=== PATIENT | female | born 1940 | race Caucasian/White ===

== ENCOUNTER 2017-06-08 05:30 | Inpatient (IN) | payer MEDICARE, OTHER ==
[2017-06-08] MEDS ORDERED: Sodium Chloride 0.9% 5 ML Syringe FLUSH PRN ×2 (05:38→07:02)
[2017-06-08] MEDS ORDERED: GI Cocktail 45 ML BOTTLE PO ONE (05:39)
[2017-06-08] MEDS ORDERED: GI Cocktail 45 ML BOTTLE ONE (05:40)
--- NOTE | 2017-06-08 06:18 | EDM.PDOC ---
ED HPI GENERAL MEDICAL PROBLEM - General Chief Complaint: General Stated Complaint: epigastric pain Time Seen by Provider: 06/08/17 05:40 Source of Information: Reports: Patient, Family History Limitations: Reports: No Limitations - History of Present Illness INITIAL COMMENTS - FREE TEXT/NARRATIVE: 77 YO WF presents to ER with family complaining of epigastric pain which began after waking 2 hours ago. Pt reports it's a constant pain and states it just "hurts". Pt reports associated nausea without vomiting. Pt denies shortness of breath, diaphoresis, or dizziness. Pt with recent history (December 2016) of CABG x 3. Pt with history of ?CVA or possible cerebral hemorrhage secondary to head injury. Pt refusing any medication for pain or nausea at this time. Onset: Today Onset Date: 06/08/17 Onset Time: 04:00 Duration: Hour(s): (2) Location: Reports: Chest, Abdomen Quality: Reports: Ache Severity: Mild Improves with: Reports: None Worsens with: Reports: None Associated Symptoms: Reports: No Other Symptoms, Nausea/Vomiting - Related Data Allergies Allergy/AdvReac Type Severity Reaction Status Date / Time No Known Drug Allergies Allergy NKDA Verified 06/08/17 06:09 Home Meds: Home Meds Multivitamin with Minerals [Multiple Vitamin] 1 tab PO DAILY 06/21/16 [History] Naproxen Sodium [Aleve] 220 mg PO BID PRN 06/21/16 [History] Aspirin [Halfprin] 81 mg PO BRK 06/08/17 [History] Hydrochlorothiazide/Lisinopril [Lisinopril/HCTZ 10-12.5 MG] 1 tab PO DAILY 06/08 [History] Nateglinide [Nateglinide] 60 mg PO BID 06/08/17 [History] Past Medical History HEENT History: Reports: Cataract, Hard of Hearing Cardiovascular History: Reports: High Cholesterol Gastrointestinal History: Reports: None Genitourinary History: Reports: None [employer] History: Reports: Musculoskeletal History: Reports: None Neurological History: Reports: TIA Endocrine/Metabolic History: Reports: Diabetes, Type II - Infectious Disease History Infectious Disease History: Reports: Measles, Mumps - Past Surgical History Female Surgical History: Reports: Hysterectomy, Other (See Below) Musculoskeletal Surgical History: Reports: Hip Replacement, Knee Replacement Social & Family History - Family History Family Medical History: Noncontributory - Tobacco Use Smoking Status *Q: Never Smoker Second Hand Smoke Exposure: No - Recreational Drug Use Recreational Drug Use: No ED ROS GENERAL - Review of Systems Review Of Systems: See Below Constitutional: Reports: No Symptoms HEENT: Reports: No Symptoms Respiratory: Reports: No Symptoms Cardiovascular: Reports: No Symptoms Endocrine: Reports: No Symptoms GI/Abdominal: Reports: Abdominal Pain, Nausea : Reports: No Symptoms Musculoskeletal: Reports: No Symptoms Skin: Reports: No Symptoms Neurological: Reports: No Symptoms Psychiatric: Reports: No Symptoms Hematologic/Lymphatic: Reports: No Symptoms Immunologic: Reports: No Symptoms ED EXAM, GENERAL - Physical Exam Exam: See Below Exam Limited By: No Limitations General Appearance: Alert, WD/WN, No Apparent Distress Throat/Mouth: Normal Inspection, Normal Lips, Normal Teeth, Normal Gums, Normal Oropharynx, Normal Voice, No Airway Compromise Head: Atraumatic, Normocephalic Neck: Normal Inspection, Supple, Non-Tender, Full Range of Motion Respiratory/Chest: No Respiratory Distress, Lungs Clear, Normal Breath Sounds, No Accessory Muscle Use, Chest Non-Tender Cardiovascular: Normal Peripheral Pulses, Regular Rate, Rhythm, No Edema, No Gallop, No JVD, No Murmur, No Rub GI/Abdominal: Normal Bowel Sounds, Soft, No Organomegaly, No Distention, No Abnormal Bruit, No Mass, Tender (epigastric) Back Exam: Normal Inspection, Full Range of Motion, NT Extremities: Normal Inspection, Normal Range of Motion, Non-Tender, Normal Capillary Refill, No Pedal Edema Neurological: Alert, Oriented, CN II-XII Intact, Normal Cognition, Normal Gait, Normal Reflexes, No Motor/Sensory Deficits Psychiatric: Normal Affect, Normal Mood Skin Exam: Warm, Dry, Intact, Normal Color, No Rash Lymphatic: No Adenopathy EKG INTERPRETATION EKG Date: 06/08/17 Time: 06:00 Rhythm: NSR Rate (Beats/Min): 67 Adin: Normal P-Wave: Present QRS: Normal ST-T: Normal QT: Normal Comparison: NA - No Prior EKG Course - Vital Signs Last Recorded V/S: Last Vital Signs Temp 35.7 C 06/08/17 05:30 Pulse 52 L 06/08/17 06:34 Resp 18 06/08/17 06:34 BP 188/50 H 06/08/17 06:34 Pulse Ox 97 08/10/17 06:34 - Orders/Labs/Meds Orders: Active Orders 24 hr Category Date Time Status EKG Documentation Completion [RC] ASDIRECTED Care 06/08/17 05:39 Active Chest 1V Frontal [CR] Stat Exams 06/08/17 05:38 Taken Sodium Chloride 0.9% [Syrex Flush] Med 06/08/17 05:38 Active 5 ml FLUSH Q8HR PRN Saline Lock Insert [OM.PC] Routine Oth 06/08/17 05:38 Ordered EKG 12 Lead [EK] Routine Ther 06/08/17 05:39 Ordered Medication Orders Sodium Chloride (Syrex Flush) 5 ml FLUSH Q8HR PRN PRN Reason: Keep Vein Open Labs: Laboratory Tests 06/08/17 06/08/17 Range/Units 05:50 05:50 WBC 8.7 (5.0-10.0) 10^3/uL RBC 4.77 (3.80-5.50) 10^6/uL Hgb 14.7 (12.0-16.0) g/dL Hct 44.2 (37.0-47.0) % MCV 92.7 H (82.0-92.0) fL MCH 30.7 (27.0-31.0) pg MCHC 33.2 (32.0-36.0) g/dL RDW 13.0 (11.5-14.5) % Plt Count 169 (150-300) 10^3/uL MPV 9.7 (7.4-10.4) fL Sodium 142 (136-145) mmol/L Potassium 4.1 (3.3-5.3) mmol/L Chloride 106 (98-115) mmol/L Carbon Dioxide 26.9 (21.0-32.0) mmol/L BUN 25 (6-25) mg/dL Creatinine 0.80 (0.51-1.17) mg/dL Est Cr Clr Drug Dosing 51.31 mL/min Estimated GFR (MDRD) > 60 mL/min Glucose 163 H (70-110) mg/dL Calcium 9.1 (8.7-10.3) mg/dL Creatine Kinase 61 (26-276) U/L CK-MB (CK-2) 2.60 (0.00-4.30) ng/mL Troponin I < 0.04 (0.00-0.070) ng/mL Lipase 24789 H (73-393) U/L Meds: Medications Generic Name Dose Route Start Last Admin Trade Name Freq PRN Reason Stop Dose Admin Sodium Chloride 5 ml 06/08/17 05:38 Syrex Flush FLUSH Q8HR PRN Keep Vein Open Discontinued Medications Generic Name Dose Route Start Last Admin Trade Name Freq PRN Reason Stop Dose Admin Al Hydroxide/Mg Hydroxide 45 ml 06/08/17 05:39 06/08/17 06:25 Gi Cocktail PO 06/08/17 05:40 Not Given ONETIME ONE Al Hydroxide/Mg Hydroxide Confirm 06/08/17 05:40 06/08/17 06:25 Gi Cocktail Administered 06/08/17 05:41 Not Given Dose 50 ml .ROUTE .STK-MED ONE Aspirin 324 mg 06/08/17 06:21 06/08/17 06:24 Aspirin PO 06/08/17 06:22 324 mg ONETIME ONE Administration Aspirin Confirm 06/08/17 06:22 Aspirin Administered 06/08/17 06:23 Dose 324 mg .ROUTE .STK-MED ONE Nitroglycerin 1 gm 06/08/17 06:21 06/08/17 06:30 Nitro-Bid 2% TOP 06/08/17 06:22 1 gm ONETIME ONE Administration - Radiology Interpretation Free Text/Narrative:: CXR- NAD Departure - Departure Time of Disposition: 06:46 Disposition: Admitted As Inpatient 64 Condition: Good Clinical Impression: Pancreatitis Qualifiers: Chronicity: acute - Discharge Information Referrals: Jennie Lakhani MD [Primary Care Provider] - Forms: ED Department Discharge - My Orders Last 24 Hours: My Active Orders 06/08/17 05:38 Chest 1V Frontal [CR] Stat Sodium Chloride 0.9% [Syrex Flush] 5 ml FLUSH Q8HR PRN Saline Lock Insert [OM.PC] Routine 06/08/17 05:39 EKG Documentation Completion [RC] ASDIRECTED EKG 12 Lead [EK] Routine - Assessment/Plan Last 24 Hours: My Active Orders 06/08/17 05:38 Chest 1V Frontal [CR] Stat Sodium Chloride 0.9% [Syrex Flush] 5 ml FLUSH Q8HR PRN Saline Lock Insert [OM.PC] Routine 06/08/17 05:39 EKG Documentation Completion [RC] ASDIRECTED EKG 12 Lead [EK] Routine Assessment:: 1. acute pancreatitis Plan: 1. admit to medicine- Magan Cote 2. pain medication/antiemetics 3. IVF 4. supportive care 5. repeat labs in am 6. CT abd/pelvis IV
[2017-06-08] MEDS ORDERED: Nitroglycerin 2% Oint 1 GM UD Packet TOP ONE (06:21)
[2017-06-08] MEDS ORDERED: Aspirin 81 MG Tab.Chew PO ONE (06:21)
[2017-06-08] MEDS ORDERED: Aspirin 81 MG Tab.Chew ONE (06:22)
[2017-06-08 06:38] LABS: CHLORIDE,CL 106 mmol/L (98-115); SODIUM,NA 142 mmol/L (136-145)
[2017-06-08] MEDS ORDERED: Morphine 2 MG/ML Syringe IVPUSH PRN (07:02)
[2017-06-08] MEDS ORDERED: Ondansetron 4 MG/2 ML SDV IV PRN (07:02)
[2017-06-08] MEDS: Sodium Chloride 0.9% 1,000 ML IV SCH ×3 (07:10→21:55)
[2017-06-08] MEDS ORDERED: Iopamidol 612 MG/ML 75 ML Bottle IV ONE (07:11)
[2017-06-08] MEDS ORDERED: Sodium Chloride 0.9% 50 ML SDV FLUSH SCH (07:15)
[2017-06-08] MEDS ORDERED: Atropine 0.1 MG/ML 10 ML Syringe IVPUSH PRN (09:40)
[2017-06-08] MEDS ORDERED: EPINEPHrine 1:10,000 1 MG/10 ML Syringe IVPUSH PRN (09:40)
[2017-06-08] MEDS ORDERED: Lidocaine 2% 100 MG/5 ML Syringe IVPUSH PRN (09:40)
[2017-06-08] MEDS ORDERED: Nitroglycerin 0.4 MG Tab.SL SL PRN (09:40)
--- NOTE | 2017-06-08 11:20 | PCM.HP ---
H&P History of Present Illness - General Date of Service: 06/08/17 Admit Problem/Dx: Admission Diagnosis/Problem Admission Diagnosis/Problem Pancreatitis - Related Data Allergies/Adverse Reactions: Allergies Allergy/AdvReac Type Severity Reaction Status Date / Time No Known Drug Allergies Allergy NKDA Verified 06/08/17 06:09 Home Medications: Home Meds Multivitamin with Minerals [Multiple Vitamin] 1 tab PO BEDTIME 06/21/16 [History ] Naproxen Sodium [Aleve] 220 mg PO BID PRN 06/21/16 [History] Acetaminophen 325 mg PO Q4H PRN 06/08/17 [History] Aspirin [Ecotrin] 325 mg PO DAILY 06/08/17 [History] Hydrochlorothiazide/Lisinopril [Lisinopril/HCTZ 10-12.5 MG] 1 tab PO DAILY 06/08 [History] Nateglinide [Nateglinide] 60 mg PO BIDAC 06/08/17 [History] Zolpidem Tartrate [Ambien] 5 mg PO BEDTIME PRN 06/08/17 [History] atorvaSTATin [Lipitor] 20 mg PO DAILY 06/08/17 [History] Past Medical History HEENT History: Reports: Cataract, Hard of Hearing Other HEENT History: has hearing aids Cardiovascular History: Reports: High Cholesterol Gastrointestinal History: Reports: None Other Gastrointestinal History: occ has gastric reflux Genitourinary History: Reports: None [employer]ING [employer] History: Reports: Musculoskeletal History: Reports: None Other Musculoskeletal History: walker use. 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 Endocrine/Metabolic History: Reports: Diabetes, Type II Other Dermatologic History: discoloration to L lower leg "had rash years ago" - Infectious Disease History Infectious Disease History: Reports: Measles, Mumps - Past Surgical History Female Surgical History: Reports: Hysterectomy, Other (See Below) Musculoskeletal Surgical History: Reports: Hip Replacement, Knee Replacement Social & Family History - Family History Family Medical History: Noncontributory - Tobacco Use Smoking Status *Q: Never Smoker Second Hand Smoke Exposure: No - Caffeine Use Caffeine Use: Reports: Soda - Recreational Drug Use Recreational Drug Use: No H&P Review of Systems - Review of Systems: Review Of Systems: See Below General: Denies: Fever, Chills, Decreased Appetite HEENT: Reports: No Symptoms Pulmonary: Reports: No Symptoms Cardiovascular: Denies: Palpitations, Edema Gastrointestinal: Reports: Abdominal Pain (umbilical pain), Anorexia, Nausea. Denies: Constipation, Diarrhea, Decreased Appetite, Distension Exam - Exam Exam: See Below - Vital Signs Vital Signs: Last Vital Signs Temp 97.6 F 06/08/17 10:36 Pulse 72 06/08/17 10:36 Resp 14 06/08/17 10:36 BP 155/80 H 06/08/17 10:36 Pulse Ox 97 06/08/17 10:36 Weight: 152 lb 3.2 oz - Patient Data Result Diagrams: 06/08/17 05:50 06/08/17 05:50 *Q Meaningful Use (ADM) - VTE *Q VTE Criteria *Q: - Stroke *Q Stroke Criteria *Q: - AMI *Q AMI Criteria *Q: Problem List Initiated/Reviewed/Updated: Yes Orders Last 24hrs: Active Orders 24 hr Category Date Time Status Patient Status [ADT] Routine ADT 06/08/17 07:02 Ordered Bedrest Bathroom Privileges [RC] ASDIRECTED Care 06/08/17 07:02 Active Bedrest Bedside Commode [RC] ASDIRECTED Care 06/08/17 07:02 Active Cardiac Monitoring [RC] 0300,0700,1100,1500,1900,2300 Care 06/08/17 07:03 Active Oxygen Therapy [RC] .PRN Care 06/08/17 07:02 Active VTE/DVT Education [RC] PER UNIT ROUTINE Care 06/08/17 07:02 Active Vital Signs [RC] 0300,0700,1100,1500,1900,2300 Care 06/08/17 07:02 Active Nothing per Oral Now Diet [DIET] Diet 06/08/17 Breakfast Active Abdomen Pelvis w Cont [CT] Stat Exams 06/08/17 07:04 Taken CBC WITH AUTO DIFF [HEME] AM Lab 06/09/17 05:11 Ordered COMPREHENSIVE METABOLIC PN,CMP [CHEM] AM Lab 06/09/17 05:11 Ordered LIPASE [CHEM] AM Lab 06/09/17 05:11 Ordered Atropine [Atropine 0.1 MG/ML] Med 06/08/17 09:40 Active 0 mg IVPUSH ASDIRECTED PRN EPINEPHrine [EPINEPHrine 1:10,000] Med 06/08/17 09:40 Active 1 mg IVPUSH ASDIRECTED PRN Lidocaine 2% [Xylocaine 2%] Med 06/08/17 09:40 Active 0 mg IVPUSH ASDIRECTED PRN Morphine Med 06/08/17 07:02 Active 2 mg IVPUSH Q2H PRN Nitroglycerin [Nitrostat] Med 06/08/17 09:40 Active 0.4 mg SL ASDIRECTED PRN Ondansetron [Zofran] Med 06/08/17 07:02 Active 4 mg IV Q4H PRN Sodium Chloride 0.9% [Normal Saline] 1,000 ml Med 06/08/17 07:15 Active IV ASDIRECTED Sodium Chloride 0.9% [Syrex Flush] Med 06/08/17 07:02 Active 5 ml FLUSH Q8HR PRN Peripheral IV Insertion Adult [OM.PC] Routine Oth 06/08/17 07:02 Ordered Resuscitation Status Routine Resus Stat 06/08/17 07:02 Ordered Medication Orders Atropine Sulfate (Atropine 0.1 Mg/Ml) 0 mg IVPUSH ASDIRECTED PRN PRN Reason: Heart Epinephrine HCl (Epinephrine 1:10,000) 1 mg IVPUSH ASDIRECTED PRN PRN Reason: Heart Sodium Chloride (Normal Saline) 1,000 mls @ 125 mls/hr IV ASDIRECTED ESTRELLA Last Admin: 06/08/17 07:10 Dose: 125 mls/hr Lidocaine HCl (Xylocaine 2%) 0 mg IVPUSH ASDIRECTED PRN PRN Reason: Heart Morphine Sulfate (Morphine) 2 mg IVPUSH Q2H PRN PRN Reason: Pain (severe 7-10) Nitroglycerin (Nitrostat) 0.4 mg SL ASDIRECTED PRN PRN Reason: Heart Ondansetron HCl (Zofran) 4 mg IV Q4H PRN PRN Reason: Nausea/Vomiting Sodium Chloride (Syrex Flush) 5 ml FLUSH Q8HR PRN PRN Reason: Keep Vein Open Assessment/Plan Comment:: This 77-year-old female was admitted very early this morning through the ED when she came in due to some umbilical type epigastric pain about 2 hours ago which woke her up this morning around 300. She stated it was a constant ache however she had ongoing nausea and vomiting. She denies any history of pancreatitis however her electronic medical record demonstrates history of pancreatitis likely gallstone in nature as she did have a bladder removed years ago. Denies any jaundice. Denies any EtOH use. Pt with recent history (December 2016) of CABG x 3. Pt with history of ?CVA or possible cerebral hemorrhage secondary to head injury. Does has history of coronary artery bypass grafting x3 aorta to saphenous vein graft sequentially to obtuse marginal and PDA, left internal mammary artery to left anterior descending artery by Dr. Oviedo on March 14, 2017. She did well after follow-up with this. ED workup showed negative troponin, EKG sinus rhythm with sinus arrhythmia We'll continue with workup. Patient was transferred to floor however requested CT of her abdomen, and LFT's Impression and plan Pancreatitis, questionable etiology, possible medication-induced. CT results demonstrate likely early pancreatitis as she has mild edema over pancreatic bed no pseudocysts identified, does show some mild diverticular disease without active inflammation. Continue with fluids advance diet hold Starlix, white count normal. Trend her lipase Rule out myocardial infarction, cardiobiomarkers are negative on admission with ECG sinus rhythm with some sinus arrhythmia. Secondary impression Type 2 diabetes mellitus. Metformin was recently discontinued and started on Starlix 60 mg b.i.d--hold for now Hyperlipidemia, on atorvastatin. Hypertension, with recently increase in her Lisinopril due to inadequate control. Will continue with Lisinopril and metoprolol 12.5 mg daily. Insomnia Overall Plan: Continue with fluids at current rate, add PPI therapy, can contiue with NSAIDS. Will place her on clear liquids for now most likely could advance diet today if tolerable Monitor for signs of hemodynamic instability and/or fever or worsening abdominal pain, We'll assess LFTs and lipids today to determine cause of her pancreatitis, may have to get ultrasound biliary tree etiology is a concern
[2017-06-08] MEDS ORDERED: Insulin Aspart 100 Units/ML 3 ML Pen SUBCUT PRN (12:00)
[2017-06-08] MEDS ORDERED: Aspirin 325 MG Tab.EC PO SCH ×2 (12:00→12:15)
[2017-06-08] MEDS ORDERED: Acetaminophen 325 MG Tab PO PRN (12:00)
[2017-06-08] MEDS: atorvaSTATin 10 MG Tab PO SCH (12:25)
[2017-06-08] MEDS: Lisinopril 10 MG Tab PO SCH (12:26)
[2017-06-08] MEDS: Hydrochlorothiazide 12.5 MG Cap PO SCH (12:26)
[2017-06-08] MEDS: Omeprazole 20 MG Cap.CR PO SCH (12:26)
[2017-06-08] MEDS ORDERED: Zolpidem 5 MG Tab PO PRN (18:49)
[2017-06-08] MEDS: Insulin Aspart 100 Units/ML 3 ML Pen SUBCUT SCH (18:53)
[2017-06-09] MEDS: Omeprazole 20 MG Cap.CR PO SCH (06:06)
[2017-06-09] MEDS: Sodium Chloride 0.9% 1,000 ML IV SCH (06:06)
[2017-06-09 06:25] VITALS: BP 162/69
[2017-06-09] MEDS: Insulin Aspart 100 Units/ML 3 ML Pen SUBCUT SCH (07:45)
[2017-06-09] MEDS: atorvaSTATin 10 MG Tab PO SCH (08:00)
[2017-06-09] MEDS: Lisinopril 10 MG Tab PO SCH (08:01)
[2017-06-09] MEDS: Hydrochlorothiazide 12.5 MG Cap PO SCH (08:01)
[2017-06-09 08:04] LABS: CHLORIDE,CL 106 mmol/L (98-115); SODIUM,NA 141 mmol/L (136-145)
[2017-06-09] MEDS ORDERED: Aspirin 325 MG Tab.EC PO SCH (09:00)
[2017-06-09] MEDS ORDERED: GADOPENTETATE DIMEGLUMINE IVPUSH SCH (09:00)
[2017-06-09] MEDS ORDERED: Zolpidem 5 MG Tab PO PRN (09:07)
[2017-06-09] MEDS ORDERED: Acetaminophen 325 MG Tab PO PRN (09:07)
--- NOTE | 2017-06-09 10:44 | PCM.DCSUM1 ---
Discharge Summary - Hospital Course Free Text/Narrative:: Ms. Hall is a 77yoF who presented to the ED on 06/08/17 for acute onset upper abdominal pain for which she was found to have laboratory and imaging consistent with pancreatitis. She was admitted to the floor for IVF and supportive management. Over the course of her 30 hour stay, she improved greatly from a symptomatic standpoint and had a reduction in her lipase from >11 ,000 to around 700. On the day of discharge, she was tolerating a full liquid to mechanical soft diet without symptoms and had no abdominal pain, nausea, vomiting, or other untoward symptoms. #Acute pancreatitis: Acute onset of upper abdominal pain which resolved with IVF and supportive management. Initial lipase >11,000 decreased to around 700 on day of discharge[address] CT evidence of early pancreatitis. 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 S/p remote cholecystectomy, no alcohol use, other new medications or ingestions. Continue gradual advancement of diet and discontinuation of Starlix. #CAD: S/p CABG earlier this year. On ACEI, ASA, and statin. Not on BB due to bradycardia. Home meds were continued throughout stay and continued at discharge. Telemetry unremarkable and patient asymptomatic throughout stay. #DMT2: Starlix discontinued, as above, secondary to likely culprit of acute pancreatitis. BGs well controlled throughout stay without need for sliding scale insulin. Due to this, will have patient monitor her BGs 2-3 times daily for the next week and bring log into clinic for review and determination of needed medication regimen. #HTN: On low-dose lisinopril-HCTZ on admission, which was continued at discharge. SBPs occasionally into the 150s-160s, though she was receiving IVF, so will continue home dose at discharge and have her monitor as an outpatient and review at follow-up appointment to consider increased dose. #HLD: Held during stay, but restarted at discharge. - Discharge Data Discharge Date: 06/09/17 Discharge Disposition: Home, Self-Care 01 Condition: Good - Discharge Diagnosis/Problem(s) (1) Pancreatitis SNOMED Code(s): 63570847 ICD Code: K85.90 - ACUTE PANCREATITIS WITHOUT NECROSIS OR INFECTION, UNSP Status: Acute Current Visit: Yes Qualifiers: Chronicity: acute - Patient Summary/Data Operative Procedure(s) Performed: None Consults: None - Patient Instructions Diet: Heart Healthy Diet Diet, Other: Low fat Activity: As Tolerated - Discharge Plan Home Medications: Home Meds Multivitamin with Minerals [Multiple Vitamin] 1 tab PO BEDTIME 06/21/16 [History ] Naproxen Sodium [Aleve] 220 mg PO BID PRN 06/21/16 [History] Acetaminophen 325 mg PO Q4H PRN 06/08/17 [History] Aspirin [Ecotrin] 325 mg PO DAILY 06/08/17 [History] Hydrochlorothiazide/Lisinopril [Lisinopril/HCTZ 10-12.5 MG] 1 tab PO DAILY 06/08 [History] Zolpidem Tartrate [Ambien] 5 mg PO BEDTIME PRN 06/08/17 [History] atorvaSTATin [Lipitor] 20 mg PO DAILY 06/08/17 [History] Forms: ED Department Discharge Referrals: Jennie Lakhani MD [Primary Care Provider] - (Follow-up in 7-10 days in [facility].) - Discharge Summary/Plan Comment DC Time >30 min.: Yes - General Info Date of Service: 06/09/17 Subjective Update: Feeling much improved. Tolerating full liquid diet last evening and soft diet this morning for breakfast. No new concerns. Desires discharge to home. - Review of Systems General: Denies: Fever, Weakness, Chills, Appetite Pulmonary: Denies: Shortness of Breath, Cough Cardiovascular: Denies: Chest Pain, Palpitations Gastrointestinal: Denies: Abdominal Pain, Diarrhea, Difficulty Swallowing, Nausea, Vomiting Genitourinary: Denies: Dysuria Skin: Denies: Rash Neurological: Denies: Dizziness, Difficulty Walking Psychiatric: Denies: Confusion - Patient Data Vitals - Most Recent: Last Vital Signs Temp 36.2 C 06/09/17 06:24 Pulse 73 06/09/17 06:24 Resp 20 06/09/17 06:24 BP 162/69 H 06/09/17 08:01 Pulse Ox 95 06/09/17 06:50 Weight - Most Recent: 69.037 kg I&O - Last 24 hours: Intake & Output 06/08/17 06/09/17 06/09/17 22:59 06:59 14:59 Intake Total 1410 1080 Output Total 950 1300 Balance 460 -220 Lab Results - Last 24 hrs: Laboratory Results - last 24 hr 06/08/17 06/08/17 06/09/17 Range/Units 12:11 18:16 06:33 WBC (5.0-10.0) 10^3/uL RBC (3.80-5.50) 10^6/uL Hgb (12.0-16.0) g/dL Hct (37.0-47.0) % MCV (82.0-92.0) fL MCH (27.0-31.0) pg MCHC (32.0-36.0) g/dL RDW (11.5-14.5) % Plt Count (150-300) 10^3/uL MPV (7.4-10.4) fL Neut % (Auto) (50.0-70.0) % Lymph % (Auto) (20.0-40.0) % [place] % (Auto) (2.0-8.0) % Eos % (Auto) (1.0-3.0) % Baso % (Auto) (0.0-1.0) % Neut # (Auto) (2.5-7.0) 10^3/uL Lymph # (Auto) (1.0-4.0) 10^3/uL [place] # (Auto) (0.1-0.8) 10^3/uL Eos # (Auto) (0.1-0.3) 10^3/uL Baso # (Auto) (0.0-0.1) 10^3/uL Sodium (136-145) mmol/L Potassium (3.3-5.3) mmol/L Chloride (98-115) mmol/L Carbon Dioxide (21.0-32.0) mmol/L BUN (6-25) mg/dL Creatinine (0.51-1.17) mg/dL Est Cr Clr Drug Dosing mL/min Estimated GFR (MDRD) mL/min Glucose (70-110) mg/dL POC Glucose 112 H 111 H 114 H (74-106) mg/dl Calcium (8.7-10.3) mg/dL Total Bilirubin (0.2-1.0) mg/dL AST (15-37) U/L ALT (12-78) U/L Alkaline Phosphatase (46-116) IU/L Total Protein (6.4-8.2) g/dL Albumin (3.00-4.80) g/dL Lipase (73-393) U/L 06/09/17 06/09/17 Range/Units 07:30 07:30 WBC 7.8 (5.0-10.0) 10^3/uL RBC 4.27 (3.80-5.50) 10^6/uL Hgb 13.0 (12.0-16.0) g/dL Hct 39.7 (37.0-47.0) % MCV 93.0 H (82.0-92.0) fL MCH 30.5 (27.0-31.0) pg MCHC 32.8 (32.0-36.0) g/dL RDW 12.7 (11.5-14.5) % Plt Count 149 L (150-300) 10^3/uL MPV 9.0 (7.4-10.4) fL Neut % (Auto) 71.4 H (50.0-70.0) % Lymph % (Auto) 17.8 L (20.0-40.0) % Rutherford % (Auto) 8.2 H (2.0-8.0) % Eos % (Auto) 2.0 (1.0-3.0) % Baso % (Auto) 0.6 (0.0-1.0) % Neut # (Auto) 5.6 (2.5-7.0) 10^3/uL Lymph # (Auto) 1.4 (1.0-4.0) 10^3/uL [place]ford # (Auto) 0.6 (0.1-0.8) 10^3/uL Eos # (Auto) 0.2 (0.1-0.3) 10^3/uL Baso # (Auto) 0.0 (0.0-0.1) 10^3/uL Sodium 141 (136-145) mmol/L Potassium 4.2 (3.3-5.3) mmol/L Chloride 106 (98-115) mmol/L Carbon Dioxide 28.9 (21.0-32.0) mmol/L BUN 11 (6-25) mg/dL Creatinine 0.65 (0.51-1.17) mg/dL Est Cr Clr Drug Dosing 63.15 mL/min Estimated GFR (MDRD) > 60 mL/min Glucose 135 H (70-110) mg/dL POC Glucose (74-106) mg/dl Calcium 8.5 L (8.7-10.3) mg/dL Total Bilirubin 1.0 (0.2-1.0) mg/dL AST 22 (15-37) U/L ALT 21 (12-78) U/L Alkaline Phosphatase 70 (46-116) IU/L Total Protein 6.5 (6.4-8.2) g/dL Albumin 3.34 (3.00-4.80) g/dL Lipase 773 H (73-393) U/L Med Orders - Current: Current Medications Acetaminophen (Tylenol) 325 mg PO Q4H PRN PRN Reason: Pain Aspirin (Ecotrin) 325 mg PO DAILY [facility] Last Admin: 06/09/17 08:01 Dose: 325 mg Atorvastatin Calcium (Lipitor) 20 mg PO DAILY [facility] Last Admin: 06/09/17 08:00 Dose: 20 mg Atropine Sulfate (Atropine 0.1 Mg/Ml) 0 mg IVPUSH ASDIRECTED PRN PRN Reason: Heart Epinephrine HCl (Epinephrine 1:10,000) 1 mg IVPUSH ASDIRECTED PRN PRN Reason: Heart Hydrochlorothiazide (Hydrochlorothiazide) 12.5 mg PO DAILY [facility] Last Admin: 06/09/17 08:01 Dose: 12.5 mg Sodium Chloride (Normal Saline) 1,000 mls @ 125 mls/hr IV ASDIRECTED [facility] Last Admin: 06/09/17 06:06 Dose: 125 mls/hr Insulin Aspart (Novolog) 0 unit SUBCUT TIDMEALS [facility] PRN Reason: Protocol Last Admin: 06/09/17 07:45 Dose: Not Given Lidocaine HCl (Xylocaine 2%) 0 mg IVPUSH ASDIRECTED PRN PRN Reason: Heart Lisinopril (Prinivil) 10 mg PO DAILY [facility] Last Admin: 06/09/17 08:01 Dose: 10 mg Morphine Sulfate (Morphine) 2 mg IVPUSH Q2H PRN PRN Reason: Pain (severe 7-10) Nitroglycerin (Nitrostat) 0.4 mg SL ASDIRECTED PRN PRN Reason: Heart Omeprazole (Omeprazole) 20 mg PO ACBREAKFAST [facility] Last Admin: 06/09/17 06:06 Dose: 20 mg Ondansetron HCl (Zofran) 4 mg IV Q4H PRN PRN Reason: Nausea/Vomiting Sodium Chloride (Syrex Flush) 5 ml FLUSH Q8HR PRN PRN Reason: Keep Vein Open Zolpidem Tartrate (Ambien) 5 mg PO BEDTIME PRN PRN Reason: Insomnia Last Admin: 06/08/17 20:37 Dose: 5 mg Discontinued Medications Al Hydroxide/Mg Hydroxide (Gi Cocktail) 45 ml PO ONETIME ONE Stop: 06/08/17 05:40 Last Admin: 06/08/17 06:25 Dose: Not Given Al Hydroxide/Mg Hydroxide (Gi Cocktail) Confirm Administered Dose 50 ml .ROUTE .STK-MED ONE Stop: 06/08/17 05:41 Last Admin: 06/08/17 06:25 Dose: Not Given Aspirin (Aspirin) 324 mg PO ONETIME ONE Stop: 06/08/17 06:22 Last Admin: 06/08/17 06:24 Dose: 324 mg Aspirin (Aspirin) Confirm Administered Dose 324 mg .ROUTE .STK-MED ONE Stop: 06/08/17 06:23 Last Admin: 06/08/17 07:23 Dose: Not Given Aspirin (Ecotrin) 325 mg PO BRK [facility] Last Admin: 06/08/17 14:33 Dose: Not Given Aspirin (Ecotrin) 325 mg PO DAILY [facility] Insulin Aspart (Novolog) 0 unit SUBCUT TIDMEALS PRN; Protocol PRN Reason: blood sugar control Iopamidol (Isovue-300 (61%)) 75 ml IV ONETIME ONE Stop: 06/08/17 07:12 Last Admin: 06/08/17 08:20 Dose: 75 ml Nitroglycerin (Nitro-Bid 2%) 1 gm TOP ONETIME ONE Stop: 06/08/17 06:22 Last Admin: 06/08/17 06:30 Dose: 1 gm Sodium Chloride (Syrex Flush) 5 ml FLUSH Q8HR PRN PRN Reason: Keep Vein Open Sodium Chloride (Normal Saline) 50 ml FLUSH ASDIRECTED [facility] Last Admin: 06/08/17 08:20 Dose: 50 ml - Exam General: Reports: Alert, Oriented HEENT: Reports: Mucous Membr. Moist/[place] Neck: Reports: Supple Lungs: Reports: Clear to Auscultation Cardiovascular: Reports: Regular Rate, Regular Rhythm GI/Abdominal Exam: Normal Bowel Sounds, Soft, Non-Tender, No Distention Extremities: Normal Inspection. No: Pedal Edema Skin: Reports: Warm, Dry Psy/Mental Status: Reports: Alert, Normal Affect, Normal Mood *Q Meaningful Use (DIS) - VTE *Q VTE Criteria *Q: - Stroke *Q Stroke Criteria *Q: - AMI *Q AMI Criteria *Q:
[2017-06-10] MEDS ORDERED: Aspirin 325 MG Tab.EC PO SCH (09:00)
[2017-06-10] MEDS ORDERED: Non-Formulary Medication 1 Each (Atorvastatin [Lipitor] 20 MG) PO SCH (09:00)
== END 2017-06-09 11:50 | disposition home or self-care (01) | DRG 440 ==
LOC: KA.ED 05:30 → KA.MS 07:00
PROVIDERS: ADMIT Physician Assistant Medical; ATTEND Nurse Practitioner Family
DX: K85.90 Acute pancreatitis without necrosis or infection, unspecified (principal); E78.00 Pure hypercholesterolemia, unspecified; I25.10 Atherosclerotic heart disease of native coronary artery without angina pectoris; E11.9 Type 2 diabetes mellitus without complications; I10 Essential (primary) hypertension; E78.5 Hyperlipidemia, unspecified; Z95.1 Presence of aortocoronary bypass graft; Z79.899 Other long term (current) drug therapy; Z86.73 Personal history of transient ischemic attack (TIA), and cerebral infarction without residual deficits
CPT/HCPCS: 71010; 80053; 80061; 82550; 82553; 83690; 84484; 85027; 93005; 99284; 99285; A9270 ×2; 36415; 74177; 82962; 85025; J7030; Q9967

== ENCOUNTER 2019-04-26 06:07 | Emergency (ER) | payer MEDICARE, OTHER, MEDICAID ==
--- NOTE | 2019-04-26 07:19 | EDM.PDOC ---
ED HPI GENERAL MEDICAL PROBLEM - General Chief Complaint: Head Injury Stated Complaint: fall Time Seen by Provider: 04/26/19 07:00 Source of Information: Reports: Patient, EMS, EMS Notes Reviewed, Correction Records History Limitations: Reports: No Limitations - History of Present Illness INITIAL COMMENTS - FREE TEXT/NARRATIVE: Patient is an 78-year-old female who presents to the emergency department via EMS secondary to fall at nursing facility. Patient is a resident at [facility] and states that while she was using the bathroom at approximately 0 500 today accidentally tripped and fell. Patient states that she landed on her buttocks, rolled to the right side and struck the right side of her head on the floor. Patient states she did not lose consciousness. However, she required assistance to get up. She is evaluated by nursing staff, and decision was made to contact EMS. At this time, patient complains of headache and some neck discomfort. Patient denies chest pain, shortness of breath, syncope, nausea, vomiting, blurry vision, back pain, or leg pain. Onset: Today Onset Time: 05:00 Duration: Hour(s): Location: Reports: Head Quality: Reports: Ache Severity: Mild Improves with: Reports: None Worsens with: Reports: None Context: Reports: Trauma Associated Symptoms: Reports: Headaches. Denies: Chest Pain, Nausea/Vomiting, Shortness of Breath head Pain Score (Numeric/FACES): 7 - Related Data Allergies Allergy/AdvReac Type Severity Reaction Status Date / Time No Known Drug Allergies Allergy NKDA Verified 04/26/19 06:32 Home Meds: Home Meds Multivitamin with Minerals [Multiple Vitamin] 1 tab PO BEDTIME 06/21/16 [History ] Naproxen Sodium [Aleve] 220 mg PO BID PRN 06/21/16 [History] Acetaminophen [Tylenol Arthritis Pain] 650 mg PO BID PRN 04/26/19 [History] Acetaminophen [Tylenol Arthritis Pain] 650 mg PO DAILY 04/26/19 [History] Aspirin [Halfprin] 81 mg PO DAILY 04/26/19 [History] Cyanocobalamin (Vitamin B-12) [B-12] 500 mcg PO DAILY 04/26/19 [History] Diclofenac Sodium [Voltaren 1%] 1 applic TP QID PRN 04/26/19 [History] Escitalopram [Lexapro] 10 mg PO DAILY 04/26/19 [History] Gabapentin [Neurontin] 300 mg PO BID 04/26/19 [History] L.acidoph,Paracasei, B.lactis [Probiotic] 1 each PO DAILY 04/26/19 [History] Lidocaine 1 each TP DAILY PRN 04/26/19 [History] Lisinopril/Hydrochlorothiazide [Lisinopril-Hctz 10-12.5 mg Tab] 1 each PO DAILY 04/26/19 [History] SitaGLIPtin [Januvia] 50 mg PO DAILY 04/26/19 [History] rOPINIRole HCl [Requip] 0.25 mg PO BEDTIME PRN 04/26/19 [History] Past Medical History HEENT History: Reports: Cataract, Hard of Hearing Other HEENT History: has hearing aids Cardiovascular History: Reports: High Cholesterol Gastrointestinal History: Reports: None Other Gastrointestinal History: occ has gastric reflux Genitourinary History: Reports: None 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 Endocrine/Metabolic History: Reports: Diabetes, Type II Other Dermatologic History: discoloration to L lower leg "had rash years ago" - Infectious Disease History Infectious Disease History: Reports: Measles, Mumps - Past Surgical History Female Surgical History: Reports: Hysterectomy, Other (See Below) Musculoskeletal Surgical History: Reports: Hip Replacement, Knee Replacement Social & Family History - Family History Family Medical History: Noncontributory - Tobacco Use Smoking Status *Q: Never Smoker Second Hand Smoke Exposure: No - Caffeine Use Caffeine Use: Reports: Soda - Recreational Drug Use Recreational Drug Use: No ED ROS GENERAL - Review of Systems Review Of Systems: ROS reveals no pertinent complaints other than HPI. Constitutional: Reports: No Symptoms HEENT: Reports: No Symptoms Respiratory: Reports: No Symptoms Cardiovascular: Reports: No Symptoms Endocrine: Reports: No Symptoms GI/Abdominal: Reports: No Symptoms : Reports: No Symptoms Musculoskeletal: Reports: Neck Pain Skin: Reports: No Symptoms Neurological: Reports: Headache Psychiatric: Reports: No Symptoms Hematologic/Lymphatic: Reports: Easy Bruising ED EXAM, HEAD INJURY - Physical Exam Exam: See Below Exam Limited By: No Limitations General Appearance: Alert, WD/WN, No Apparent Distress Head: Scalp Tenderness (Right posterior lateral, without depression or hematoma) Nexus Criteria: Posterior, Midline Cervical Tenderness. No: Evidence of Intoxication, Altered Level of Consciousness, Focal Neurological Deficit, Painful Distraction Injuries Eyes: Bilateral Eye: Normal Inspection Ears: Normal External Exam, Normal Canal, Normal TMs Nose: Normal Inspection, Normal Mucousa, No Blood Throat/Mouth: Normal Inspection, Normal Oropharynx, Normal Voice, No Airway Compromise Neck: Paraspinous Muscle Tender Respiratory: No Respiratory Distress, Lungs Clear, Normal Breath Sounds, No Accessory Muscle Use, Chest Non-Tender Cardiovascular: Normal Peripheral Pulses, Regular Rate, Rhythm, No Murmur GI/Abdominal Exam: Normal Bowel Sounds, Soft, Non-Tender Back Exam: Normal Inspection Extremities: Normal Inspection, No Pedal Edema Neurologic: No Motor/Sensory Deficits, Alert, Normal Mood/Affect, Oriented x 3 Skin: Normal Color, Warm/Dry, Ecchymosis (Right forearm) - Fonda Coma Score Best Eye Response (Fonda): (4) Open Spontaneously Best Verbal Response (Fonda): (5) Oriented Best Motor Response (Fonda): (6) Obeys Commands Danish Total: 15 Course - Vital Signs Last Recorded V/S: Last Vital Signs Temp 97.1 F 04/26/19 06:11 Pulse 51 L 04/26/19 06:35 Resp 21 H 04/26/19 06:11 BP 197/60 H 04/26/19 06:35 Pulse Ox 96 04/26/19 06:11 - Orders/Labs/Meds Orders: Active Orders 24 hr Category Date Time Status Cervical Spine wo Cont [CT] Stat Exams 04/26/19 06:47 Ordered Head wo Cont [CT] Stat Exams 04/26/19 06:47 Ordered - Radiology Interpretation Free Text/Narrative:: CT without contrast of head and cervical spine show no intracranial bleed, no fracture or subluxation. - Re-Assessments/Exams Free Text/Narrative Re-Assessment/Exam: 04/26/19 08:02 Patient afebrile, vital signs stable, headache pain relieved. Patient denies chest pain or shortness of breath. Patient hypertensive at 190s systolic, however, diastolic is in the 50s. No intervention at this juncture, patient will be reevaluated by PCP. Departure - Departure Time of Disposition: 08:04 Disposition: DC/Tfer to [facility] Condition: Good Clinical Impression: Strain of neck muscle, Fall in elderly patient Head injury without concussion or intracranial hemorrhage Qualifiers: Encounter type: initial encounter Qualified Code(s): S09.90XA - Unspecified injury of head, initial encounter - Discharge Information Instructions: Fall Prevention in the Home, Adult, [id number], Facial or Scalp Contusion, [id number], Cervical Sprain, [id number], Head Injury, Adult , [id number] Referrals: Jennie Lakhani MD [Primary Care Provider] - Additional Instructions: Follow-up with PCP STEFAN for hypertension concern. Return to emergency department if symptoms continue. - My Orders Last 24 Hours: My Active Orders 04/26/19 06:47 Cervical Spine wo Cont [CT] Stat Head wo Cont [CT] Stat - Assessment/Plan Last 24 Hours: My Active Orders 04/26/19 06:47 Cervical Spine wo Cont [CT] Stat Head wo Cont [CT] Stat Assessment:: Head injury Plan: Return to nursing facility. Follow up with PCP
--- NOTE | 2019-04-26 07:32 | CT ---
[id number] CT/CT Cervical Spine WO IV Exam: CT Cervical Spine WO IV Clinical Data: TRAUMA COMPARISON: CORRELATION IS MADE WITH THE EXAM OF OCTOBER 18, 2016. FINDINGS: There is no fracture or subluxation. There are degenerative changes. The prevertebral soft tissues are unremarkable. IMPRESSION: NO FRACTURE OR SUBLUXATION. Devin Hayward MD 04/26/19 0731 Thank you for allowing us to participate in the care of your patient.
[2019-04-26 07:57] VITALS: BP 195/56
== END 2019-04-26 08:30 ==
LOC: KA.ED 06:07
DX: S09.90XA Unspecified injury of head, initial encounter (principal); S16.1XXA Strain of muscle, fascia and tendon at neck level, initial encounter; S50.11XA Contusion of right forearm, initial encounter; E78.00 Pure hypercholesterolemia, unspecified; E11.9 Type 2 diabetes mellitus without complications; F32.9 Major depressive disorder, single episode, unspecified; W01.0XXA Fall on same level from slipping, tripping and stumbling without subsequent striking against object, initial encounter; Y92.121 Bathroom in nursing home as the place of occurrence of the external cause; Z79.899 Other long term (current) drug therapy; Z79.84 Long term (current) use of oral hypoglycemic drugs; Z79.82 Long term (current) use of aspirin
CPT/HCPCS: 70450; 72125; 99284; 99284-25

== ENCOUNTER 2019-05-08 07:10 | Observation (INO) | payer MEDICARE, OTHER, MEDICAID ==
--- NOTE | 2019-05-08 07:45 | EDM.PDOC ---
ED HPI GENERAL MEDICAL PROBLEM - General Chief Complaint: Head Injury Stated Complaint: Headache s/p Fall Time Seen by Provider: 05/08/19 07:39 Source of Information: Reports: Patient, EMS, Skilled Nursing Records History Limitations: Reports: No Limitations - History of Present Illness INITIAL COMMENTS - FREE TEXT/NARRATIVE: 78 YO WF presents to ER from [facility] complaining of a headache after a fall last night. Pt reports she woke to assist her to the bathroom and lost her balance falling on her buttocks and striking the back of her head. Pt denies any loss of consciousness but states she needed help getting up from the floor. Pt reports she fell asleep in her recliner and woke this am with nausea/ vomiting x 1 prompting EMS transfer. Pt was given Tylenol/Ultram prior to leaving the [facility]. Pt alert and oriented x 4 and answers all questions appropriately and with detail. GCS-15. Current BP 198/59. Pt was taking lisinopril/HCTZ for her BP but it was stopped recently. Pt denies any chest pain , shortness of breath, diaphoresis or dizziness. Pt reports her headache is on the top and occipital region of her head without any evidence of trauma. Pt denies any neck pain. Pt ambulated from the bathroom to ambulance stretcher this am without difficulty. Onset: Today Duration: Hour(s): (5) Location: Reports: Head. Denies: Neck, Chest Quality: Reports: Ache Severity: Moderate Improves with: Reports: None Worsens with: Reports: None Associated Symptoms: Reports: No Other Symptoms, Headaches, Nausea/Vomiting. 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: Acetaminophen, Other Medication(s) (Ultram) Headache Pain Score (Numeric/FACES): 5 - Related Data Allergies Allergy/AdvReac Type Severity Reaction Status Date / Time No Known Drug Allergies Allergy NKDA Verified 04/26/19 06:32 Home Meds: Home Meds Multivitamin with Minerals [Multiple Vitamin] 1 tab PO BEDTIME 06/21/16 [History ] Naproxen Sodium [Aleve] 220 mg PO BID PRN 06/21/16 [History] Acetaminophen [Tylenol Arthritis Pain] 650 mg PO BID PRN 04/26/19 [History] Acetaminophen [Tylenol Arthritis Pain] 650 mg PO DAILY 04/26/19 [History] Aspirin [Halfprin] 81 mg PO DAILY 04/26/19 [History] Cyanocobalamin (Vitamin B-12) [B-12] 500 mcg PO DAILY 04/26/19 [History] Diclofenac Sodium [Voltaren 1%] 1 applic TP QID PRN 04/26/19 [History] Escitalopram [Lexapro] 10 mg PO DAILY 04/26/19 [History] Gabapentin [Neurontin] 300 mg PO BID 04/26/19 [History] L.acidoph,Paracasei, B.lactis [Probiotic] 1 each PO DAILY 04/26/19 [History] Lidocaine 1 each TP DAILY PRN 04/26/19 [History] Lisinopril/Hydrochlorothiazide [Lisinopril-Hctz 10-12.5 mg Tab] 1 each PO DAILY 04/26/19 [History] SitaGLIPtin [Januvia] 50 mg PO DAILY 04/26/19 [History] rOPINIRole HCl [Requip] 0.25 mg PO BEDTIME PRN 04/26/19 [History] Past Medical History HEENT History: Reports: Cataract, Hard of Hearing Other HEENT History: has hearing aids Cardiovascular History: Reports: High Cholesterol Gastrointestinal History: Reports: None Other Gastrointestinal History: occ has gastric reflux Genitourinary History: Reports: None 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 Endocrine/Metabolic History: Reports: Diabetes, Type II Other Dermatologic History: discoloration to L lower leg "had rash years ago" - Infectious Disease History Infectious Disease History: Reports: Measles, Mumps - Past Surgical History Female Surgical History: Reports: Hysterectomy, Other (See Below) Musculoskeletal Surgical History: Reports: Hip Replacement, Knee Replacement Social & Family History - Family History Family Medical History: Noncontributory - Caffeine Use Caffeine Use: Reports: Soda ED ROS GENERAL - Review of Systems Review Of Systems: See Below Constitutional: Reports: No Symptoms HEENT: Reports: No Symptoms Respiratory: Reports: No Symptoms Cardiovascular: Reports: No Symptoms Endocrine: Reports: No Symptoms GI/Abdominal: Reports: No Symptoms : Reports: No Symptoms Musculoskeletal: Reports: No Symptoms Skin: Reports: No Symptoms Neurological: Reports: Headache. Denies: Confusion, Dizziness, Numbness, Seizure, Syncope, Tingling, Tremors, Trouble Speaking, Difficulty Walking, Weakness, Change in Speech, Gait Disturbance Psychiatric: Reports: No Symptoms Hematologic/Lymphatic: Reports: No Symptoms Immunologic: Reports: No Symptoms ED EXAM, HEAD INJURY - Physical Exam Exam: See Below Exam Limited By: No Limitations General Appearance: Alert, WD/WN, No Apparent Distress Head: Atraumatic, Normocephalic Nexus Criteria: No: Posterior, Midline Cervical Tenderness, Evidence of Intoxication, Altered Level of Consciousness, Focal Neurological Deficit, Painful Distraction Injuries Eyes: Bilateral Eye: EOMI, PERRL Neck: Non-Tender, Full Range of Motion, Normal Alignment, Normal Inspection Respiratory: No Respiratory Distress, Lungs Clear, Normal Breath Sounds, No Accessory Muscle Use, Chest Non-Tender Cardiovascular: Normal Peripheral Pulses, Regular Rate, Rhythm, No Edema, No Gallop, No JVD, No Murmur, No Rub GI/Abdominal Exam: Normal Bowel Sounds, Soft, Non-Tender, No Organomegaly, No Distention, No Abnormal Bruit, No Mass Back Exam: Full Range of Motion, Normal Inspection, NT Extremities: Normal Inspection, Normal Range of Motion, Non-Tender, No Pedal Edema, Normal Capillary Refill Neurologic: saw feeder II-XII nml As Tested, No Motor/Sensory Deficits, Alert, Normal Mood/Affect, Oriented x 3 Skin: Normal Color, Warm/Dry - [place] Coma Score Best Eye Response (Danish): (4) Open Spontaneously Best Verbal Response (Danish): (5) Oriented Best Motor Response (Danish): (6) Obeys Commands EKG INTERPRETATION EKG Date: 05/08/19 Time: 08:12 Rhythm: NSR Rate (Beats/Min): 56 [place]: Normal P-Wave: Present QRS: Normal ST-T: Normal QT: Normal Comparison: No Change (06/08/2017) Course - Vital Signs Last Recorded V/S: Last Vital Signs Temp 36.6 C 05/08/19 07:42 Pulse 55 L 05/08/19 08:15 Resp 18 05/08/19 08:15 BP 192/56 H 05/08/19 08:30 Pulse Ox 93 L 05/08/19 08:15 - Orders/Labs/Meds Orders: Active Orders 24 hr Category Date Time Status EKG Documentation Completion [RC] ASDIRECTED Care 05/08/19 08:01 Active Sodium Chloride 0.9% [Normal Saline] 50 ml Med 05/08/19 08:30 Active IV ASDIRECTED EKG 12 Lead [EK] Routine Ther 05/08/19 08:00 Ordered Medication Orders Sodium Chloride (Normal Saline) 50 mls @ 50 mls/hr IV ASDIRECTED ESTRELLA Last Admin: 05/08/19 08:24 Dose: 50 mls/hr Labs: Laboratory Tests 05/08/19 05/08/19 05/08/19 Range/Units 07:38 08:05 08:05 WBC 7.68 (5.00-10.00) 10^3/uL RBC 3.93 (3.80-5.50) 10^6/uL Hgb 13.0 (12.0-16.0) g/dL Hct 39.0 (37.0-47.0) % MCV 99.2 H D (82.0-92.0) fL MCH 33.1 H (27.0-31.0) pg MCHC 33.3 (32.0-36.0) g/dL RDW 12.3 (11.5-14.5) % Plt Count 152 (150-400) 10^3/uL MPV 10.2 (7.4-10.4) fL Immature Gran % (Auto) 0.1 (0.0-5.0) % Neut % (Auto) 64.9 (50.0-70.0) % Lymph % (Auto) 22.5 (20.0-40.0) % [place] % (Auto) 8.9 H (2.0-8.0) % Eos % (Auto) 3.3 H (1.0-3.0) % Baso % (Auto) 0.3 (0.0-1.0) % Immature Gran # (Auto) 0.01 (0.00-0.50) 10^3/uL Neut # (Auto) 4.99 (2.50-7.00) 10^3/uL Lymph # (Auto) 1.73 (1.00-4.00) 10^3/uL [place] # (Auto) 0.68 (0.10-0.80) 10^3/uL Eos # (Auto) 0.25 (0.10-0.30) 10^3/uL Baso # (Auto) 0.02 (0.00-0.10) 10^3/uL Sodium 138 (136-145) mmol/L Potassium 4.9 (3.3-5.3) mmol/L Chloride 103 (98-115) mmol/L Carbon Dioxide 27.1 (21.0-32.0) mmol/L Anion Gap 12.8 (5-15) mmol/L BUN 18 (6-25) mg/dL Creatinine 0.65 (0.51-1.17) mg/dL Est Cr Clr Drug Dosing 62.11 mL/min Estimated GFR (MDRD) > 60 mL/min Glucose 169 H (75 - 99) mg/dL POC Glucose 174 H (74-106) mg/dl Calcium 9.0 (8.7-10.3) mg/dL Total Bilirubin 0.6 (0.2-1.0) mg/dL AST 25 (15-37) U/L ALT 18 (12-78) U/L Alkaline Phosphatase 52 (46-116) IU/L Creatine Kinase 44 (26-276) U/L CK-MB (CK-2) 1.20 (0.00-4.30) ng/mL Troponin I < 0.04 (0.00-0.070) ng/mL Total Protein 7.0 (6.4-8.2) g/dL Albumin 3.52 (3.00-4.80) g/dL Meds: Medications Generic Name Dose Route Start Last Admin Trade Name Freq PRN Reason Stop Dose Admin Sodium Chloride 50 mls @ 50 mls/hr 05/08/19 08:30 05/08/19 08:24 Normal Saline IV 50 mls/hr ASDIRECTED ESTRELLA Administration Discontinued Medications Generic Name Dose Route Start Last Admin Trade Name Freq PRN Reason Stop Dose Admin Enalaprilat 1.25 mg 05/08/19 07:50 05/08/19 08:30 Vasotec Iv IVPUSH 05/08/19 07:51 1.25 mg ONETIME ONE Administration Ondansetron HCl 4 mg 05/08/19 08:00 05/08/19 08:27 Zofran IVPUSH 05/08/19 08:01 4 mg ONETIME ONE Administration - Radiology Interpretation Free Text/Narrative:: CT head- NAD CT Cervical spine- NAD; chronic changes Departure - Departure Time of Disposition: :09 Disposition: Refer to Observation Condition: Fair Clinical Impression: Fall in elderly patient Head injury without concussion or intracranial hemorrhage Qualifiers: Encounter type: initial encounter Qualified Code(s): S09.90XA - Unspecified injury of head, initial encounter Hypertension Qualifiers: Hypertension type: essential hypertension Qualified Code(s): I10 - Essential ( primary) hypertension Headache Qualifiers: Headache type: unspecified Headache chronicity pattern: acute headache Intractability: not intractable Qualified Code(s): R51 - Headache - Discharge Information Referrals: Jennie Lakhani MD [Primary Care Provider] - Forms: ED Department Discharge - My Orders Last 24 Hours: My Active Orders 05/08/19 08:00 EKG 12 Lead [EK] Routine 05/08/19 08:01 EKG Documentation Completion [RC] ASDIRECTED 05/08/19 08:30 Sodium Chloride 0.9% [Normal Saline] 50 ml IV ASDIRECTED - Assessment/Plan Last 24 Hours: My Active Orders 05/08/19 08:00 EKG 12 Lead [EK] Routine 05/08/19 08:01 EKG Documentation Completion [RC] ASDIRECTED 05/08/19 08:30 Sodium Chloride 0.9% [Normal Saline] 50 ml IV ASDIRECTED Assessment:: 1. Fall 2. Headache/possible Head trauma 3. uncontrolled hypertension Plan: 1. discussed with Dr Christy Davenport- will keep in hospital for obs due to continued headache and uncontrolled hypertension 2. supportive care 3. additional orders per Dr Christy Davenport
[2019-05-08] MEDS ORDERED: Enalaprilat 1.25 MG/ML SDV IVPUSH ONE (07:50)
[2019-05-08] MEDS ORDERED: Ondansetron 4 MG/2 ML SDV IVPUSH ONE (08:00)
--- NOTE | 2019-05-08 08:20 | CT ---
[id number] CT/CT Head WO IV EXAM: CT Head WO IV CLINICAL DATA: HEADACHE COMPARISON STUDY: 11/09/2016 FINDINGS: No intracranial hemorrhage, extra-axial fluid collection, mass, or acute ischemia. Generalized parenchymal atrophy with scattered areas of nonspecific white matter disease, commonly seen as sequela of chronic microvascular ischemia. Soft tissues are unremarkable. Paranasal sinuses and mastoid air cells are clear. IMPRESSION: No acute intracranial findings. Rigoberto Daily DO 05/08/19 0817 Thank you for allowing us to participate in the care of your patient.
[2019-05-08] MEDS ORDERED: Sodium Chloride 0.9% 50 ML IV SCH (08:30)
--- NOTE | 2019-05-08 08:38 | CT ---
[id number] CT/CT Cervical Spine WO IV EXAM: NONCONTRAST CERVICAL SPINE CT INDICATION: HEADACHE COMPARISON: None. DISCUSSION: Straightening of the normal cervical lordosis. Mild degenerative spondylolisthesis of about 2 mm C3 on C4 and C4 on C5. The vertebral bodies are otherwise normal in height and alignment. No fracture or suspicious osseous lesion is identified. The prevertebral soft tissues are unremarkable. Mild degenerative disc disease C5-C6. Mild scattered facet degeneration throughout the cervical spine. IMPRESSION: 1. No acute fracture or subluxation. Chronic changes as above. Rigoberto Daily DO 05/08/19 0835 Thank you for allowing us to participate in the care of your patient.
[2019-05-08 08:48] LABS: ANION GAP 12.8 mmol/L (5-15); CHLORIDE,CL 103 mmol/L (98-115); SODIUM,NA 138 mmol/L (136-145)
[2019-05-08] MEDS ORDERED: Ketorolac 30 MG/ML SDV IVPUSH ONE (09:00)
[2019-05-08] MEDS ORDERED: Lisinopril 20 MG Tab PO ONE (14:30)
[2019-05-08] MEDS ORDERED: Hydrochlorothiazide 12.5 MG Cap PO ONE (14:30)
[2019-05-08] MEDS ORDERED: rOPINIRole 0.25 MG Tab PO PRN (18:21)
[2019-05-08] MEDS ORDERED: Acetaminophen 650 MG Tab.ER PO PRN (18:21)
[2019-05-08] MEDS ORDERED: traMADol 50 MG Tab PO PRN (18:21)
[2019-05-08] MEDS: Escitalopram 10 MG Tab PO SCH (19:13)
[2019-05-08] MEDS: Aspirin 81 MG Tab.EC PO SCH (19:13)
[2019-05-08] MEDS: Acetaminophen 650 MG Tab.ER PO SCH (20:03)
[2019-05-08] MEDS: Gabapentin 300 MG Cap PO SCH (20:03)
--- NOTE | 2019-05-08 20:16 | PCM.HP ---
H&P History of Present Illness - General Date of Service: 05/08/19 Admit Problem/Dx: Admission Diagnosis/Problem Admission Diagnosis/Problem Hypertension complications Source of Information: Patient, Fpc Records, Provider History Limitations: Reports: No Limitations - History of Present Illness Initial Comments - Free Text/Narative: 78-year-old female who resides at [facility] nursing [facility] who sustained a fall around 0100 on 05/08/19. She initially complained of a mild headache ring 12/09, but had minimal other complaints. Apparently, she was assisting her in to bed and fell herself alongside the bed onto her backside and she believes she may have hit her head. She was noted to have an elevated blood pressure around 200 systolic which improved to 150 systolic on recheck 15 minutes later. It was noted, however, that she had elevated blood pressures for the past week following discontinuation of her lisinopril 10 mg and hydrochlorothiazide 12.5 mg on 04/29/19 for the reports of low blood pressures , however review of blood pressures does not corroborate this. She had no neurological abnormalities and declined wishing to proceed to the emergency department for further evaluation, so she was monitored closely at the nursing facility. Around 0700, she was complaining of worsening headache and blood pressure was noted to again be in the high 100s systolic, so she was transported today emergency department for further evaluation. Of note she had a recent emergency department visit for a fall within the last 2 weeks as well. Upon admission, she denies any pain aside from a mild headache which is worse with ambulation. She admits to quite a bit of bruising following her last fall, but has been ambulating fairly well without difficulty. She denies any other cardiovascular symptoms, as noted in review of systems. Headache Pain Score (Numeric/FACES): 3 Right Leg Pain Score (Numeric/FACES): 7 - Related Data Allergies/Adverse Reactions: Allergies Allergy/AdvReac Type Severity Reaction Status Date / Time No Known Drug Allergies Allergy NKDA Verified 05/08/19 09:07 Home Medications: Home Meds Multivitamin with Minerals [Multiple Vitamin] 1 tab PO BEDTIME 06/21/16 [History ] Acetaminophen [Tylenol Arthritis Pain] 650 mg PO BID 04/26/19 [History] Acetaminophen [Tylenol Arthritis Pain] 650 mg PO BID PRN 04/26/19 [History] Aspirin [Halfprin] 81 mg PO DAILY 04/26/19 [History] Cyanocobalamin (Vitamin B-12) [B-12] 500 mcg PO DAILY 04/26/19 [History] Diclofenac Sodium [Voltaren 1%] 1 applic TP QID PRN 04/26/19 [History] Escitalopram [Lexapro] 10 mg PO DAILY 04/26/19 [History] Gabapentin [Neurontin] 300 mg PO BID 04/26/19 [History] L.acidoph,Paracasei, B.lactis [Probiotic] 1 each PO DAILY 04/26/19 [History] Lidocaine 1 each TP DAILY PRN 04/26/19 [History] SitaGLIPtin [Januvia] 50 mg PO DAILY 04/26/19 [History] rOPINIRole HCl [Requip] 0.25 mg PO BEDTIME PRN 04/26/19 [History] traMADol HCl [Tramadol HCl] 50 mg PO BID PRN 05/08/19 [History] Past Medical History HEENT History: Reports: Cataract, Hard of Hearing Other HEENT History: has hearing aids Cardiovascular History: Reports: High Cholesterol, Hypertension Gastrointestinal History: Reports: GERD Other Gastrointestinal History: occ has gastric reflux Genitourinary History: Reports: None 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 residual weakness to L hand and L leg. numbness/tingling to L foot, pain at times Psychiatric History: Reports: Depression, Other (See Below) Other Psychiatric History: after CVA Endocrine/Metabolic History: Reports: Diabetes, Type II Dermatologic History: Reports: Cellulitis Other Dermatologic History: discoloration to L lower leg "had rash years ago" - Infectious Disease History Infectious Disease History: Reports: Measles, Mumps - Past Surgical History Female Surgical History: Reports: Hysterectomy Musculoskeletal Surgical History: Reports: Hip Replacement, Knee Replacement Social & Family History - Family History Family Medical History: Noncontributory - Tobacco Use Smoking Status *Q: Never Smoker Second Hand Smoke Exposure: Yes - Caffeine Use Caffeine Use: Reports: Soda - Recreational Drug Use Recreational Drug Use: No H&P Review of Systems - Review of Systems: Review Of Systems: See Below General: Reports: Malaise, Fatigue. Denies: Fever, Chills HEENT: Denies: Dysphasia, Ear Pain, Rhinitis, Sore Throat Pulmonary: Denies: Shortness of Breath, Wheezing, Pleuritic Chest Pain, Cough Cardiovascular: Denies: Chest Pain, Palpitations, Dyspnea on Exertion Gastrointestinal: Denies: Abdominal Pain, Constipation, Diarrhea, Nausea, Vomiting Genitourinary: Denies: Dysuria, Frequency, Burning, Pain Musculoskeletal: Denies: Neck Pain, Joint Pain, Joint Swelling Skin: Reports: Bruising. Denies: Jaundice, Wound Psychiatric: Denies: Depression, Mood Lability, Anxiety Neurological: Reports: Dizziness, Headache, Numbness (chronic LLE), Tingling ( chronic LLE). Denies: Confusion Hematologic/Lymphatic: Reports: Easy Bleeding, Easy Bruising Exam - Exam Exam: See Below - Vital Signs Vital Signs: Last Vital Signs Temp 36.5 C 05/08/19 18:43 Pulse 53 L 05/08/19 18:43 Resp 18 05/08/19 18:43 BP 134/80 05/08/19 18:43 Pulse Ox 90 L 05/08/19 18:43 Weight: 77.383 kg - Exam Physical Exam Comments:: GENERAL: Well-appearing elderly female lying in hospital bed in no acute distress. HEENT: Normocephalic, atraumatic, nontender. Conjunctiva clear. Nares patent without discharge. Mucous membranes moist, posterior pharynx unremarkable. NECK: Supple, no masses. CV: Mildly bradycardic, regular rhythm, no murmurs, rubs, or gallops. 2+ radial pulses. PULMONARY: Normal effort, clear to auscultation bilaterally, no wheezes, rales, or rhonchi. ABDOMEN: Positive bowel sounds, soft, nontender, nondistended. EXTREMITIES: 2+ edema of bilateral lower extremities to mid-nieves. MUSCULOSKELETAL: Moves all extremities well. Nontender to bony palpation, even in bruised areas. NEUROLOGICAL: No obvious deficits. DERMATOLOGIC: Extensive ecchymosis of R anterior thigh, intertriginous areas under bilateral breasts, and R posterior upper back. PSYCHIATRIC: Alert, interactive, appropriate affect, mildly confused. - Patient Data Lab Results Last 24 hrs: Laboratory Results - last 24 hr 05/08/19 05/08/19 05/08/19 Range/Units 07:38 08:05 08:05 WBC 7.68 (5.00-10.00) 10^3/uL RBC 3.93 (3.80-5.50) 10^6/uL Hgb 13.0 (12.0-16.0) g/dL Hct 39.0 (37.0-47.0) % MCV 99.2 H D (82.0-92.0) fL MCH 33.1 H (27.0-31.0) pg MCHC 33.3 (32.0-36.0) g/dL RDW 12.3 (11.5-14.5) % Plt Count 152 (150-400) 10^3/uL MPV 10.2 (7.4-10.4) fL Immature Gran % (Auto) 0.1 (0.0-5.0) % Neut % (Auto) 64.9 (50.0-70.0) % Lymph % (Auto) 22.5 (20.0-40.0) % [place] % (Auto) 8.9 H (2.0-8.0) % Eos % (Auto) 3.3 H (1.0-3.0) % Baso % (Auto) 0.3 (0.0-1.0) % Immature Gran # (Auto) 0.01 (0.00-0.50) 10^3/uL Neut # (Auto) 4.99 (2.50-7.00) 10^3/uL Lymph # (Auto) 1.73 (1.00-4.00) 10^3/uL [place] # (Auto) 0.68 (0.10-0.80) 10^3/uL Eos # (Auto) 0.25 (0.10-0.30) 10^3/uL Baso # (Auto) 0.02 (0.00-0.10) 10^3/uL Sodium 138 (136-145) mmol/L Potassium 4.9 (3.3-5.3) mmol/L Chloride 103 (98-115) mmol/L Carbon Dioxide 27.1 (21.0-32.0) mmol/L Anion Gap 12.8 (5-15) mmol/L BUN 18 (6-25) mg/dL Creatinine 0.65 (0.51-1.17) mg/dL Est Cr Clr Drug Dosing 62.11 mL/min Estimated GFR (MDRD) > 60 mL/min Glucose 169 H (75 - 99) mg/dL POC Glucose 174 H (74-106) mg/dl Calcium 9.0 (8.7-10.3) mg/dL Total Bilirubin 0.6 (0.2-1.0) mg/dL AST 25 (15-37) U/L ALT 18 (12-78) U/L Alkaline Phosphatase 52 (46-116) IU/L Creatine Kinase 44 (26-276) U/L CK-MB (CK-2) 1.20 (0.00-4.30) ng/mL Troponin I < 0.04 (0.00-0.070) ng/mL Total Protein 7.0 (6.4-8.2) g/dL Albumin 3.52 (3.00-4.80) g/dL Result Diagrams: 05/08/19 08:05 05/08/19 08:05 Problem List Initiated/Reviewed/Updated: Yes Orders Last 24hrs: Active Orders 24 hr Category Date Time Status Patient Status [ADT] Routine ADT 05/08/19 09:12 Ordered Cardiac Monitoring [RC] 0300,0700,1100,1500,1900,2300 Care 05/08/19 09:12 Active Oxygen Therapy [RC] PRN Care 05/08/19 09:12 Active Up With Assistance [RC] ASDIRECTED Care 05/08/19 09:12 Active VTE/DVT Education [RC] PER UNIT ROUTINE Care 05/08/19 09:12 Active Vital Signs [RC] 0300,0700,1100,1500,1900,2300 Care 05/08/19 09:12 Active [employer] Diet [DIET] Diet 05/08/19 Breakfast Active Acetaminophen [Tylenol Arthritis Pain] Med 05/08/19 21:00 Active 650 mg PO BID Acetaminophen [Tylenol Arthritis Pain] Med 05/08/19 18:21 Active 650 mg PO BID PRN Aspirin [Halfprin] Med 05/08/19 18:30 Active 81 mg PO DAILY Escitalopram [Lexapro] Med 05/08/19 18:30 Active 10 mg PO DAILY Gabapentin [Neurontin] Med 05/08/19 21:00 Active 300 mg PO BID Lisinopril [Prinivil] Med 05/09/19 09:00 Active 10 mg PO DAILY SitaGLIPtin [Januvia] Med 05/09/19 09:00 Active 50 mg PO DAILY hydroCHLOROthiazide Med 05/09/19 09:00 Active 12.5 mg PO DAILY rOPINIRole [Requip] Med 05/08/19 18:21 Active 0.25 mg PO BEDTIME PRN traMADol [Ultram] Med 05/08/19 18:21 Active 50 mg PO BID PRN Resuscitation Status Routine Resus Stat 05/08/19 09:12 Ordered Medication Orders Acetaminophen (Tylenol Arthritis Pain) 650 mg PO BID [facility] Last Admin: 05/08/19 20:03 Dose: 650 mg Acetaminophen (Tylenol Arthritis Pain) 650 mg PO BID PRN PRN Reason: Pain Aspirin (Halfprin) 81 mg PO DAILY [facility] Last Admin: 05/08/19 19:13 Dose: 81 mg Escitalopram Oxalate (Lexapro) 10 mg PO DAILY [facility] Last Admin: 05/08/19 19:13 Dose: 10 mg Gabapentin (Neurontin) 300 mg PO BID [facility] Last Admin: 05/08/19 20:03 Dose: 300 mg Hydrochlorothiazide (Hydrochlorothiazide) 12.5 mg PO DAILY [facility] Lisinopril (Prinivil) 10 mg PO DAILY [facility] Ropinirole HCl (Requip) 0.25 mg PO BEDTIME PRN PRN Reason: Other Sitagliptin Phosphate (Januvia) 50 mg PO DAILY [facility] Tramadol HCl (Ultram) 50 mg PO BID PRN PRN Reason: Pain Assessment/Plan Comment:: HPI summary: 78yoF with a history of recent falls and HTN who resides at [facility] who sustained fall on 05/08/19 and was noted to have elevated blood pressures. She recently had ED visit for fall as well. ED course: Hemodynamically noted to have BPs as high as 200 systolic. Given enalaprilat 2.5mg with some improvement to the 180s. CT head and C-spine without acute findings. Labs, including CBC, CMP, and troponin unremarkable. Hospitalization problems: # Hypertensive urgency # Benign essential HTN # Headache # Recurrent falls # Ecchymosis Since stopping lisinopril-HCTZ, has had increased BPs. Will restart medications and monitor closely with prns as needed for BP >165 systolic. Consider PT at discharge given falls. No evidence of bony abnormality and reassuring scans for further injury. Supportively treat pain. Chronic, stable conditions: # DMT2: Januvia. Last A1c 9% when Januvia started. # RLS: Ropinirole. # Chronic pain: Tyl scheduled and prn, tramadol. # Depression: Escitalopram. Hospitalization details: # FEN: No IVF. Electrolytes wnl. Heart healthy diet # PPX: Enoxaparin if staying 24hrs. # Code status: DNR/DNI. # Emergency contact: Daughter, who was updated by ED provider nursing staff. # Disposition: Admit to observation. Anticipate discharge back to [facility] following improvement.
[2019-05-09] MEDS: Acetaminophen 650 MG Tab.ER PO SCH (08:07)
[2019-05-09] MEDS: Escitalopram 10 MG Tab PO SCH (08:08)
[2019-05-09] MEDS: Gabapentin 300 MG Cap PO SCH (08:08)
[2019-05-09] MEDS: Aspirin 81 MG Tab.EC PO SCH (08:08)
[2019-05-09] MEDS ORDERED: Lisinopril 10 MG Tab PO SCH (09:00)
[2019-05-09] MEDS ORDERED: Hydrochlorothiazide 12.5 MG Cap PO SCH (09:00)
[2019-05-09] MEDS ORDERED: EPINEPHrine 1:10,000 1 MG/10 ML Syringe IVPUSH PRN (10:44)
[2019-05-09] MEDS ORDERED: Nitroglycerin 0.4 MG Tab.SL SL PRN (10:44)
[2019-05-09] MEDS ORDERED: Atropine 0.1 MG/ML 10 ML Syringe IVPUSH PRN (10:44)
[2019-05-09] MEDS ORDERED: Lidocaine 2% 100 MG/5 ML Syringe IVPUSH PRN (10:44)
[2019-05-09 11:06] VITALS: BP 136/62; PULSE 44
--- NOTE | 2019-05-09 11:09 | PCM.DCSUM1 ---
Discharge Summary - Hospital Course Free Text/Narrative:: Date of admission: 05/08/19 Date of discharge: 05/09/19 Admission diagnoses: # Hypertensive urgency # Benign essential HTN # Headache # Recurrent falls # Ecchymosis # DMT2 # RLS # Chronic pain # Depression # Confusion/memory loss Discharge diagnoses: # Hypertensive urgency, resolved # Benign essential HTN # Headache, resolved # Recurrent falls # Ecchymosis # R hip pain # DMT2 # RLS # Chronic pain # Depression # Confusion/memory loss Hospital course: 78yoF with a history of recent falls and HTN who resides at [facility] who sustained fall on 05/08/19 and was noted to have elevated blood pressures. She recently had ED visit for fall as well. In the ED, she was hemodynamically noted to have BPs as high as 200 systolic. Given enalaprilat 2.5mg with some improvement to the 180s. CT head and C-spine without acute findings. Labs, including CBC, CMP, and troponin unremarkable. She was admitted to observation status for close monitoring and BP management. Review of senior care BP log shows that since stopping lisinopril-HCTZ, she has had steadily increasing BPs and BPs prior to stopping were actually wnl without notable hypotension. Prior regimen of lisinopril 10mg and HCTZ 12.5mg was restarted with subsequent improvement of BPs. Given recurrent falls and deconditioning, PT evaluation recommended, which will be obtained at [facility]. R hip XR obtained given extensive bruising and was without acute abnormality. Her pain was controlled with her baseline outpatient regimen. Throughout her stay, confusion and memory loss was noted, which is documented as chronic without formal neuropsychological evaluation, but consistent with MCI/dementia. Discharge and follow-up recommendations: - Discharge back to [facility] - New medications at discharge: - Restart lisinopril 10mg-HCTZ 12.5mg daily - BP BID x 1 week with review on rounds next week - Physical therapy and occupational therapy referrals placed - Follow-up at next senior care rounds - Discharge Data Discharge Date: 05/09/19 Discharge Disposition: DC/Tfer to [facility] 03 Condition: Good - Patient Instructions Diet: Heart Healthy Diet Activity: As Tolerated - Discharge Plan *PRESCRIPTION DRUG MONITORING PROGRAM REVIEWED*: Not Applicable *COPY OF PRESCRIPTION DRUG MONITORING REPORT IN PATIENT JESU: Not Applicable Prescriptions/Med Rec: Lisinopril/Hydrochlorothiazide [Lisinopril-Hctz 10-12.5 mg Tab] 1 each PO DAILY #30 tablet Home Medications: Home Meds Multivitamin with Minerals [Multiple Vitamin] 1 tab PO BEDTIME 06/21/16 [History ] Acetaminophen [Tylenol Arthritis Pain] 650 mg PO BID 04/26/19 [History] Acetaminophen [Tylenol Arthritis Pain] 650 mg PO BID PRN 04/26/19 [History] Aspirin [Halfprin] 81 mg PO DAILY 04/26/19 [History] Cyanocobalamin (Vitamin B-12) [B-12] 500 mcg PO DAILY 04/26/19 [History] Diclofenac Sodium [Voltaren 1% Gel] 1 applic TP QID PRN 04/26/19 [History] Escitalopram [Lexapro] 10 mg PO DAILY 04/26/19 [History] Gabapentin [Neurontin] 300 mg PO BID 04/26/19 [History] L.acidoph,Paracasei, B.lactis [Probiotic] 1 each PO DAILY 04/26/19 [History] Lidocaine 1 each TP DAILY PRN 04/26/19 [History] SitaGLIPtin [Januvia] 50 mg PO DAILY 04/26/19 [History] rOPINIRole HCl [Requip] 0.25 mg PO BEDTIME PRN 04/26/19 [History] traMADol HCl [Tramadol HCl] 50 mg PO BID PRN 05/08/19 [History] Lisinopril/Hydrochlorothiazide [Lisinopril-Hctz 10-12.5 mg Tab] 1 each PO DAILY #30 tablet 05/09/19 [Rx] Referrals: Jennie Lakhani MD [Primary Care Provider] - (next senior care rounds) - Discharge Summary/Plan Comment DC Time >30 min.: Yes - General Info Subjective Update: Mrs. Hall reports feeling well this morning. Headache has resolved. Denies specific pain with rest. Endorses R hip/thigh pain following fall 2 weeks ago. No new injury. Endorses overall deconditioning and unsteadiness. No new concerns. - Patient Data Vitals - Most Recent: Last Vital Signs Temp 36.3 C 05/09/19 06:12 Pulse 44 L 05/09/19 11:00 Resp 28 H 05/09/19 06:12 BP 136/62 05/09/19 11:00 Pulse Ox 93 L 05/09/19 07:55 Weight - Most Recent: 77.383 kg I&O - Last 24 hours: Intake & Output 05/08/19 05/09/19 05/09/19 22:59 06:59 14:59 Intake Total 450 200 Balance 450 200 Med Orders - Current: Current Medications Acetaminophen (Tylenol Arthritis Pain) 650 mg PO BID [facility] Last Admin: 05/09/19 08:07 Dose: 650 mg Acetaminophen (Tylenol Arthritis Pain) 650 mg PO BID PRN PRN Reason: Pain Aspirin (Halfprin) 81 mg PO DAILY [facility] Last Admin: 05/09/19 08:08 Dose: 81 mg Atropine Sulfate (Atropine 0.1 Mg/Ml) 0 mg IVPUSH ASDIRECTED PRN PRN Reason: Heart Epinephrine HCl (Epinephrine 1:10,000) 1 mg IVPUSH ASDIRECTED PRN PRN Reason: Heart Escitalopram Oxalate (Lexapro) 10 mg PO DAILY [facility] Last Admin: 05/09/19 08:08 Dose: 10 mg Gabapentin (Neurontin) 300 mg PO BID [facility] Last Admin: 05/09/19 08:08 Dose: 300 mg Hydrochlorothiazide (Hydrochlorothiazide) 12.5 mg PO DAILY [facility] Last Admin: 05/09/19 08:08 Dose: 12.5 mg Lidocaine HCl (Xylocaine 2%) 0 mg IVPUSH ASDIRECTED PRN PRN Reason: Heart Lisinopril (Prinivil) 10 mg PO DAILY [facility] Last Admin: 05/09/19 08:08 Dose: 10 mg Nitroglycerin (Nitrostat) 0.4 mg SL ASDIRECTED PRN PRN Reason: Heart Ropinirole HCl (Requip) 0.25 mg PO BEDTIME PRN PRN Reason: Other Sitagliptin Phosphate (Januvia) 50 mg PO DAILY [facility] Last Admin: 05/09/19 08:08 Dose: 50 mg Tramadol HCl (Ultram) 50 mg PO BID PRN PRN Reason: Pain Last Admin: 05/09/19 03:33 Dose: 50 mg Discontinued Medications Enalaprilat (Vasotec Iv) 1.25 mg IVPUSH ONETIME ONE Stop: 05/08/19 07:51 Last Admin: 05/08/19 08:30 Dose: 1.25 mg Hydrochlorothiazide (Hydrochlorothiazide) 12.5 mg PO ONETIME ONE Stop: 05/08/19 14:31 Last Admin: 05/08/19 15:23 Dose: 12.5 mg Sodium Chloride (Normal Saline) 50 mls @ 50 mls/hr IV ASDIRECTED [facility] Last Admin: 05/08/19 08:24 Dose: 50 mls/hr Ketorolac Tromethamine (Toradol) 30 mg IVPUSH ONETIME ONE Stop: 05/08/19 09:01 Last Admin: 05/08/19 09:03 Dose: 30 mg Lisinopril (Prinivil) 20 mg PO ONETIME ONE Stop: 05/08/19 14:31 Last Admin: 05/08/19 15:23 Dose: 20 mg Ondansetron HCl (Zofran) 4 mg IVPUSH ONETIME ONE Stop: 05/08/19 08:01 Last Admin: 05/08/19 08:27 Dose: 4 mg - Exam Physical Findings Comments:: GENERAL: Well-appearing elderly female sitting in bedside chair in no acute distress. HEENT: Normocephalic, atraumatic, nontender. Conjunctiva clear. Nares patent without discharge. Mucous membranes moist. NECK: Supple, no masses. CV: Mildly bradycardic, regular rhythm, no murmurs, rubs, or gallops. 2+ radial pulses. PULMONARY: Normal effort, clear to auscultation bilaterally, no wheezes, rales, or rhonchi. ABDOMEN: Positive bowel sounds, soft, nontender, nondistended. EXTREMITIES: 2+ edema of bilateral lower extremities to mid-nieves. MUSCULOSKELETAL: Moves all extremities well. Nontender to bony palpation, even in bruised areas. NEUROLOGICAL: No obvious deficits. DERMATOLOGIC: Extensive ecchymosis of R anterior thigh, intertriginous areas under bilateral breasts, and R posterior upper back. PSYCHIATRIC: Alert, interactive, appropriate affect, mildly confused.
--- NOTE | 2019-05-09 12:01 | CR ---
[id number] RAD/RAD Pelvis 1V W 2V Right Hip Exam: RAD Pelvis 1V W 2V Right Hip Indication:PAIN, HISTORY FALL. Comparison: CT from 2016. Discussion: Total right femoroacetabular arthroplasty. Prosthesis components remain in articulating alignment. No periprosthetic fracture. Single view of the left femoroacetabular joint demonstrates osteoarthritis. Spondylosis of lower lumbar spine. Diffuse bone demineralization. Impression: No acute findings. Other findings are described above. Fab Vazquez MD 05/09/19 1200 Thank you for allowing us to participate in the care of your patient.
--- NOTE | 2019-05-09 12:03 | CR ---
[id number] RAD/RAD Knee Right 1-2V Exam: RAD Knee Right 1-2V Indication:PAIN, HISTORY FALL. Comparison: No prior imaging for comparison. Discussion: Diffuse bone demineralization. Tricompartmental osteoarthritis. Moderate-sized joint effusion. No radiographically evident fracture. No dislocation. Impression: Joint effusion without radiographically evident fracture. Fab Vazquez MD 05/09/19 1200 Thank you for allowing us to participate in the care of your patient.
== END 2019-05-09 12:50 ==
LOC: KA.ED 07:10 → KA.MS 09:12
PROVIDERS: ADMIT Physician Assistant Medical; ATTEND Family Medicine
DX: I16.0 Hypertensive urgency (principal); I10 Essential (primary) hypertension; R51 Headache; R29.6 Repeated falls; R58 Hemorrhage, not elsewhere classified; E11.9 Type 2 diabetes mellitus without complications; M25.551 Pain in right hip; G25.81 Restless legs syndrome; G89.29 Other chronic pain; F32.9 Major depressive disorder, single episode, unspecified; R41.0 Disorientation, unspecified; E78.00 Pure hypercholesterolemia, unspecified; K21.9 Gastro-esophageal reflux disease without esophagitis; R41.3 Other amnesia; Z79.1 Long term (current) use of non-steroidal anti-inflammatories (NSAID); Z79.82 Long term (current) use of aspirin; Z79.899 Other long term (current) drug therapy; Z79.84 Long term (current) use of oral hypoglycemic drugs
CPT/HCPCS: 70450; 72125; 73502; 73560; 80053; 82550; 82553; 82962; 84484; 85025; 93005; 96374; 96375; 99284; 99285; A9270; G0378; J1885; J2405; J7050

== ENCOUNTER 2019-06-04 06:51 | Emergency (ER) | payer MEDICARE, OTHER, MEDICAID ==
[2019-06-04 07:38] VITALS: BP 222/60
--- NOTE | 2019-06-04 08:05 | EDM.PDOC ---
ED HPI GENERAL MEDICAL PROBLEM - General Chief Complaint: General Stated Complaint: FALL Time Seen by Provider: 06/04/19 07:54 Source of Information: Reports: Patient, Senior Living Records - History of Present Illness INITIAL COMMENTS - FREE TEXT/NARRATIVE: Patient is an 79-year-old female who presents to the emergency department this morning via [facility] staff transportation and has a complaint of fall just prior to arrival. Patient states that she woke because her dog needed to go outside, she was sitting on the bed and leaned over to put the leash on the dog and fell forward striking head on floor. Patient was able to contact nursing staff who assisted her. Patient sustained laceration to left forehead and scalp, and pain in right elbow and right knee. Patient states she did not lose consciousness, currently has a headache, but denies chest pain, shortness of breath, blurry vision, dizziness, neck pain, nausea or vomiting. Onset: Today Onset Date: 06/04/19 Onset Time: 06:20 Duration: Hour(s): Location: Reports: Head, Face, Upper Extremity, Right, Lower Extremity, Right Quality: Reports: Pressure Severity: Mild Improves with: Reports: None Worsens with: Reports: None Associated Symptoms: Reports: No Other Symptoms, Headaches. Denies: Chest Pain , Fever/Chills, Nausea/Vomiting, Shortness of Breath, Syncope Treatments [employer]: Reports: Cold Therapy Headache Pain Score (Numeric/FACES): 7 - Related Data Allergies Allergy/AdvReac Type Severity Reaction Status Date / Time No Known Drug Allergies Allergy NKDA Verified 06/04/19 07:38 Home Meds: Home Meds Multivitamin with Minerals [Multiple Vitamin] 1 tab PO BEDTIME 06/21/16 [History ] Acetaminophen [Tylenol Arthritis Pain] 650 mg PO Q6H PRN 04/26/19 [History] Aspirin [Halfprin] 81 mg PO DAILY 04/26/19 [History] Cyanocobalamin (Vitamin B-12) [B-12] 500 mcg PO DAILY 04/26/19 [History] Diclofenac Sodium [Voltaren 1% Gel] 1 applic TP TID PRN 04/26/19 [History] Gabapentin [Neurontin] 300 mg PO BID 04/26/19 [History] L.acidoph,Paracasei, B.lactis [Probiotic] 1 each PO DAILY 04/26/19 [History] Lidocaine 1 each TP DAILY PRN 04/26/19 [History] SitaGLIPtin [Januvia] 50 mg PO DAILY 04/26/19 [History] rOPINIRole HCl [Requip] 0.25 mg PO BEDTIME PRN 04/26/19 [History] traMADol HCl [Tramadol HCl] 50 mg PO BID PRN 05/08/19 [History] Lisinopril/Hydrochlorothiazide [Lisinopril-Hctz 10-12.5 mg Tab] 1 each PO DAILY #30 tablet 05/09/19 [Rx] DULoxetine HCl [Duloxetine HCl] 30 mg PO DAILY 06/04/19 [History] Past Medical History HEENT History: Reports: Cataract, Hard of Hearing Other HEENT History: has hearing aids Cardiovascular History: Reports: High Cholesterol, Hypertension Gastrointestinal History: Reports: GERD Other Gastrointestinal History: occ has gastric reflux Genitourinary History: Reports: None BEFORE SCHOOL [employer] History: Reports: Musculoskeletal History: Reports: None Other Musculoskeletal History: walker use. 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 residual weakness to L hand and L leg. numbness/tingling to L foot, pain at times Psychiatric History: Reports: Depression, Other (See Below) Other Psychiatric History: after CVA Endocrine/Metabolic History: Reports: Diabetes, Type II Dermatologic History: Reports: Cellulitis Other Dermatologic History: discoloration to L lower leg "had rash years ago" - Infectious Disease History Infectious Disease History: Reports: Measles, Mumps - Past Surgical History Female Surgical History: Reports: Hysterectomy Musculoskeletal Surgical History: Reports: Hip Replacement, Knee Replacement Social & Family History - Family History Family Medical History: Noncontributory - Caffeine Use Caffeine Use: Reports: Soda ED ROS GENERAL - Review of Systems Review Of Systems: ROS reveals no pertinent complaints other than HPI. Constitutional: Reports: No Symptoms HEENT: Reports: No Symptoms Respiratory: Reports: No Symptoms Cardiovascular: Reports: No Symptoms Endocrine: Reports: No Symptoms GI/Abdominal: Reports: No Symptoms : Reports: No Symptoms Musculoskeletal: Reports: Arm Pain (Right elbow), Leg Pain (Right knee) Skin: Reports: Wound (Laceration to left forehead and scalp), Other (Skin tear to right elbow) Neurological: Reports: Headache. Denies: Confusion, Dizziness, Trouble Speaking , Change in Speech Psychiatric: Reports: No Symptoms Hematologic/Lymphatic: Reports: No Symptoms Immunologic: Reports: No Symptoms ED EXAM, GENERAL - Physical Exam Exam: See Below Exam Limited By: No Limitations General Appearance: Alert, WD/WN, No Apparent Distress Eye Exam: Bilateral Eye: Normal Inspection Ears: Normal External Exam, Normal Canal, Normal TMs Nose: Normal Inspection, Normal Mucosa, No Blood Throat/Mouth: Normal Inspection, Normal Oropharynx, No Airway Compromise Head: Facial Swelling, Facial Tenderness (Right maxilla /left forehead and scalp ) Neck: Tender Lateral Respiratory/Chest: No Respiratory Distress Cardiovascular: Regular Rate, Rhythm, No Murmur GI/Abdominal: Normal Bowel Sounds, Soft, Non-Tender, Pelvis Stable Back Exam: Normal Inspection Extremities: Arm Pain (Right elbow ecchymosis with 2 small 1 cm tissue avulsions.), Leg Pain (Right knee. Minimal edema tender to palpation. No obvious deformity or dislocation noted.) Neurological: Alert, Oriented, CN II-XII Intact, No Motor/Sensory Deficits Psychiatric: Normal Affect, Normal Mood Skin Exam: Warm, Dry, Intact, Normal Color, No Rash ED GENERAL MEDICAL PROCEDURES - Laceration/Wound Repair Left Head Lac/wound length in cm: 6 Appearance: Subcutaneous Distal NVT: Neuro & Vascular Intact Anesthetic Type: Local Local Anesthesia - Lidocaine (Xylocaine): 2% with EPI Local Anesthetic Volume: 5cc Skin Prep: Providone-Iodine (Betadine) Closed with: Sutures, Merrill (7 Rogelio) Suture Size: 4-0 # of Sutures: 7 Suture Type: Prolene Sterile Dressing Applied: Nurse Tetanus Status Addressed: Yes Complications: No Course - Vital Signs Last Recorded V/S: Last Vital Signs Temp 97.8 F 06/04/19 07:00 Pulse 69 06/04/19 07:00 Resp 16 06/04/19 07:00 BP 222/60 H 06/04/19 07:00 Pulse Ox 95 06/04/19 07:00 - Orders/Labs/Meds Orders: Active Orders 24 hr Category Date Time Status Elbow Min 3V Rt [CR] Stat Exams 06/04/19 07:18 Ordered Head wo Cont [CT] Stat Exams 06/04/19 07:19 Ordered Knee 3V Rt [CR] Stat Exams 06/04/19 07:18 Ordered Max Facial Sinus wo Cont [CT] Stat Exams 06/04/19 07:50 Ordered - Radiology Interpretation Free Text/Narrative:: X-ray of right elbow and right knee negative for acute fracture or dislocation. CT head shows no intracranial process, CT facial bones and cervical spine show no fractures - Re-Assessments/Exams Free Text/Narrative Re-Assessment/Exam: 06/04/19 09:28 Patient afebrile, vital signs stable, tolerated procedure well. Laceration of scalp and forehead repaired. Tissue avulsions of right elbow approximated with Steri-Strips. Patient's granddaughter is at bedside. Patient will return to [facility] with fall precautions in elderly and follow-up at [facility] in 1-2 days. Departure - Departure Time of Disposition: 09:29 Disposition: DC/Tfer to SNF 03 Condition: Fair Clinical Impression: Fall in elderly patient Laceration of scalp Qualifiers: Encounter type: initial encounter Qualified Code(s): S01.01XA - Laceration without foreign body of scalp, initial encounter Contusion of elbow, right Qualifiers: Encounter type: initial encounter Qualified Code(s): S50.01XA - Contusion of right elbow, initial encounter Contusion of right knee Qualifiers: Encounter type: initial encounter Qualified Code(s): S80.01XA - Contusion of right knee, initial encounter Head injury due to trauma Qualifiers: Encounter type: initial encounter Qualified Code(s): S09.90XA - Unspecified injury of head, initial encounter Facial contusion Qualifiers: Encounter type: initial encounter Qualified Code(s): S00.83XA - Contusion of other part of head, initial encounter - Discharge Information Instructions: Fall Prevention in the Home, Adult, [id number], Skin Tear Care , [id number], Facial or Scalp Contusion, [id number], Stitches, Rogelio, or Adhesive Wound Closure, [id number], Laceration Care, Adult, [id number] Referrals: PCP,Unknown [Primary Care Provider] - Additional Instructions: Follow-up at [facility] in 1-2 days for recheck. Suture and staple removal in 10 days. Return to emergency department if symptoms continue. - My Orders Last 24 Hours: My Active Orders 06/04/19 07:18 Elbow Min 3V Rt [CR] Stat Knee 3V Rt [CR] Stat 06/04/19 07:19 Head wo Cont [CT] Stat 06/04/19 07:50 Max Facial Sinus wo Cont [CT] Stat - Assessment/Plan Last 24 Hours: My Active Orders 06/04/19 07:18 Elbow Min 3V Rt [CR] Stat Knee 3V Rt [CR] Stat 06/04/19 07:19 Head wo Cont [CT] Stat 06/04/19 07:50 Max Facial Sinus wo Cont [CT] Stat Assessment:: Scalp laceration Plan: Return to [facility] and follow-up at [facility] for recheck
--- NOTE | 2019-06-04 08:19 | CR ---
[id number] RAD/RAD Elbow Right 3V Min Exam: RAD Elbow Right 3V Min Indication:FALL. Comparison: No prior imaging for comparison. Discussion: Ulnotrochlear and radiocapitellar osteoarthritis. Enthesopathy of the common extensor and flexor tendons at their epicondylar attachments. No radiographically evident fracture or dislocation. No joint effusion. Impression: No acute findings. Chronic findings are described above. Fab Vazquez MD 06/04/19 0816 Thank you for allowing us to participate in the care of your patient.
--- NOTE | 2019-06-04 08:20 | CR ---
[id number] RAD/RAD Knee Right 3V Exam: RAD Knee Right 3V Indication:FALL. Comparison: May 09, 2019. Discussion: Small joint effusion. No radiographically evident fracture or dislocation. Tricompartmental osteoarthritis with joint space narrowing. Diffuse bone demineralization. 6 mm osteochondral body projects over Hoffa's fat pad on lateral Impression: Tricompartmental osteoarthritis and a knee joint effusion. No fracture or dislocation. Fab Vazquez MD 06/04/19 0817 Thank you for allowing us to participate in the care of your patient.
[2019-06-04] MEDS ORDERED: Lidocaine 2% with EPINEPHrine 1:200,000 20 ML SDV SUBCUT ONE (08:45)
[2019-06-04] MEDS ORDERED: Lidocaine 1% with EPINEPHrine 1:100,000 20 ML MDV ONE (08:50)
--- NOTE | 2019-06-04 08:57 | CT ---
[id number] CT/CT Head WO IV EXAM: CT Head WO IV CLINICAL DATA: FALL. COMPARISON STUDY: May 08, 2019. FINDINGS: No intracranial hemorrhage, extra-axial fluid collection, mass, or acute ischemia. Small area of right occipital encephalomalacia, unchanged from prior examination. Frontal scalp laceration and contusion left of midline. No underlying calvarial fracture. IMPRESSION: Left frontal scalp laceration and contusion without underlying calvarial fracture or acute intracranial hemorrhage. Fab Vazquez MD 06/04/19 0854 Thank you for allowing us to participate in the care of your patient.
--- NOTE | 2019-06-04 08:59 | CT ---
[id number] CT/CT Cervical Spine WO IV EXAM: CT Cervical Spine WO IV INDICATION: TRAUMA. COMPARISON: None. DISCUSSION: No fracture or compression deformity. Vertebral bodies remain in normal alignment. Cervical spondylosis, including grade 1 anterolisthesis at C4-5. No prevertebral soft tissue edema. Lung apices are clear. IMPRESSION: No acute findings in the cervical spine. Fab Vazquez MD 06/04/19 0856 Thank you for allowing us to participate in the care of your patient.
[2019-06-04] MEDS ORDERED: Lidocaine 1% with EPINEPHrine 1:100,000 20 ML MDV INJECT ONE (09:00)
--- NOTE | 2019-06-04 09:05 | CT ---
[id number] CT/CT Facial Bones WO IV Exam: CT Facial Bones WO IV Indication:FALL WITH BRUISE TO AREA. Comparison: No prior imaging for comparison. Discussion: Right maxillary soft tissue contusion. No acute facial bone fracture. Paranasal sinuses are clear. Impression: No facial bone fracture. Fab Vazquez MD 06/04/19 0902 Thank you for allowing us to participate in the care of your patient.
[2019-06-04] MEDS ORDERED: Diphtheria,Pertussis(Acell),Tetanus Vaccine 0.5 ML SDV IM ONE (09:20)
[2019-06-04] MEDS ORDERED: Acetaminophen 325 MG Tab PO ONE (09:54)
== END 2019-06-04 10:15 ==
LOC: KA.ED 06:51
DX: S01.01XA Laceration without foreign body of scalp, initial encounter (principal); S61.001A Unspecified open wound of right thumb without damage to nail, initial encounter; S80.01XA Contusion of right knee, initial encounter; S50.01XA Contusion of right elbow, initial encounter; I69.354 Hemiplegia and hemiparesis following cerebral infarction affecting left non-dominant side; I10 Essential (primary) hypertension; E11.9 Type 2 diabetes mellitus without complications; Z23 Encounter for immunization; Z90.710 Acquired absence of both cervix and uterus; Z79.82 Long term (current) use of aspirin; Z79.899 Other long term (current) drug therapy; W19.XXXA Unspecified fall, initial encounter
CPT/HCPCS: 12002; 70450; 70486; 72125; 73080-RT; 73562-RT; 90471; 90715; 99283; 99284-25; A9270-GY

== ENCOUNTER 2021-02-26 15:30 | Emergency (ER) | payer MEDICARE, OTHER, MEDICAID ==
[2021-02-26] MEDS ORDERED: Sodium Chloride 0.9% 10 ML Syringe FLUSH PRN (15:40)
--- NOTE | 2021-02-26 15:42 | EDM.PDOC ---
ED HPI GENERAL MEDICAL PROBLEM - General Stated Complaint: HEART ACTING UP;EYESIGHT ISSUE Time Seen by Provider: 02/26/21 15:37 Source of Information: Reports: Patient - History of Present Illness INITIAL COMMENTS - FREE TEXT/NARRATIVE: Patient presents emergency room for left arm stiffness which started this afternoon.Patient noticing having tingling from her left middle finger rating up her left arm for a brief period of time. She denied any headache shortness of breath or chest pain. She resides at the long term. 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 No recent fall or trauma. She did notice having some indigestion at 11:00 this morning for a brief period of time which resolved on its own as well. Patient code status is DNR. - Related Data Allergies Allergy/AdvReac Type Severity Reaction Status Date / Time No Known Drug Allergies Allergy NKDA Verified 02/26/21 15:48 Home Meds: Home Meds Multivitamin with Minerals [Multiple Vitamin] 1 tab PO BEDTIME 06/21/16 [History] Acetaminophen [Tylenol Arthritis Pain] 650 mg PO Q6H PRN 04/26/19 [History] Aspirin [Halfprin] 81 mg PO DAILY 04/26/19 [History] Cyanocobalamin (Vitamin B-12) [B-12] 500 mcg PO DAILY 04/26/19 [History] Diclofenac Sodium [Voltaren 1% Gel] 1 applic TP TID PRN 04/26/19 [History] L.acidoph,Paracasei, B.lactis [Probiotic] 1 each PO DAILY 04/26/19 [History] traMADol HCl [Tramadol HCl] 50 mg PO BID 05/08/19 [History] DULoxetine HCl [Duloxetine HCl] 90 mg PO DAILY 06/04/19 [History] Calcium Carbonate [Tums] 500 mg PO ASDIRECTED 02/26/21 [History] Diclofenac Sodium [Voltaren 1% Gel] 1 applic TOP TID PRN 02/26/21 [History] Docusate Sodium [Colace] 100 mg PO BID 02/26/21 [History] Empagliflozin [Jardiance] 10 mg PO DAILY 02/26/21 [History] Gabapentin [Neurontin] 100 mg PO BID 02/26/21 [History] Lisinopril/Hydrochlorothiazide [Lisinopril-HCTZ 10-12.5 MG] 10 - 12.5 mg PO DAILY 02/26/21 [History] Nystatin 1 each MC BID PRN 02/26/21 [History] SitaGLIPtin [Januvia] 100 mg PO DAILY 02/26/21 [History] bisacodyL [Dulcolax] 10 mg RC ASDIRECTED 02/26/21 [History] polyethylene glycoL 3350 [Miralax] 17 gm PO DAILY 02/26/21 [History] polyethylene glycoL 3350 [Miralax] 17 gm PO DAILY PRN 02/26/21 [History] risperiDONE [Risperidone] 0.5 mg PO DAILY 02/26/21 [History] traMADol HCl [Tramadol HCl] 50 mg PO BID PRN 02/26/21 [History] Past Medical History HEENT History: Reports: Cataract, Hard of Hearing Other HEENT History: has hearing aids Cardiovascular History: Reports: High Cholesterol, Hypertension Gastrointestinal History: Reports: GERD Other Gastrointestinal History: occ has gastric reflux Genitourinary History: Reports: None [employer] History: Reports: Musculoskeletal History: Reports: None Other Musculoskeletal History: walker use. 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 residual weakness to L hand and L leg. numbness/tingling to L foot, pain at times Psychiatric History: Reports: Depression, Other (See Below) Other Psychiatric History: after CVA Endocrine/Metabolic History: Reports: Diabetes, Type II Dermatologic History: Reports: Cellulitis Other Dermatologic History: discoloration to L lower leg "had rash years ago" - Infectious Disease History Infectious Disease History: Reports: Measles, Mumps - Past Surgical History Female Surgical History: Reports: Hysterectomy Musculoskeletal Surgical History: Reports: Hip Replacement, Knee Replacement Social & Family History - Family History Family Medical History: No Pertinent Family History - Caffeine Use Caffeine Use: Reports: Soda ED ROS GENERAL - Review of Systems Review Of Systems: See Below Constitutional: Reports: No Symptoms HEENT: Reports: Vision Change, Other (left peripheral vision loss from previous CVA) Respiratory: Reports: No Symptoms Cardiovascular: Reports: No Symptoms. Denies: Chest Pain (no current CP, she did note having indigestion at 11 am for brief period of time) Endocrine: Reports: No Symptoms GI/Abdominal: Denies: Abdominal Pain, Nausea, Vomiting Musculoskeletal: Reports: Other (left arm "stiffness" tingling in her left middle finger radiating up her left arm [employer], resolved on arrival to ER) Neurological: Reports: Numbness, Paresthesia, Pre-Existing Deficit. Denies: Confusion, Dizziness, Headache, Weakness, Change in Speech, Gait Disturbance ED EXAM, GENERAL - Physical Exam Exam: See Below Exam Limited By: No Limitations General Appearance: Alert, WD/WN, No Apparent Distress Eye Exam: Left Eye: Vision Changes (left peripheral vison loss), Bilateral Eye: EOMI, PERRL Ears: Normal TMs, Hearing Loss, Other (decreased hearing) Ear Exam: Left Ear: Bleeding (dried blood in her left ear canal), Bilateral Ear: TM normal Nose: Normal Inspection Throat/Mouth: Normal Inspection, Normal Oropharynx, No Airway Compromise, Other (denture present) Neck: Normal Inspection, Supple, Non-Tender, Full Range of Motion Respiratory/Chest: No Respiratory Distress, Lungs Clear, Normal Breath Sounds, No Accessory Muscle Use, Chest Non-Tender Cardiovascular: Normal Peripheral Pulses, Regular Rate, Rhythm, No Edema Peripheral Pulses: 2+: Radial (L), Radial (R), Dorsalis Pedis (L), Dorsalis Pe dis (R) GI/Abdominal: Normal Bowel Sounds, Soft, Non-Tender Back Exam: Normal Inspection Extremities: Normal Inspection, Non-Tender, Other (ami legs ) Neurological: Alert, Oriented, CN II-XII Intact, Normal Cognition, No Motor/Sensory Deficits Psychiatric: Normal Affect, Normal Mood Skin Exam: Warm, Dry, Intact #1 Interpretation EKG Date: 02/26/21 Time: 15:41 Rhythm: NSR Echo: Normal P-Wave: Present ST-T: Normal QT: Normal Course - Vital Signs Last Recorded V/S: Last Vital Signs Temp 96.5 F L 02/26/21 15:43 Pulse 58 L 02/26/21 16:30 Resp 21 H 02/26/21 16:30 BP 138/62 02/26/21 16:30 Pulse Ox 94 L 02/26/21 16:30 - Orders/Labs/Meds Orders: Active Orders 24 hr Category Date Time Status Saline Lock Insert [OM.PC] Routine Oth 02/26/21 15:40 Ordered EKG 12 Lead [EK] Stat Ther 02/26/21 15:40 Ordered Labs: Laboratory Tests 02/26/21 02/26/21 02/26/21 Range/Units 15:38 15:43 15:45 WBC 8.80 (5.00-10.00) 10^3/uL RBC 4.78 (3.80-5.50) 10^6/uL Hgb 14.9 D (12.0-16.0) g/dL Hct 46.5 (37.0-47.0) % MCV 97.3 H (82.0-92.0) fL MCH 31.2 H (27.0-31.0) pg MCHC 32.0 (32.0-36.0) g/dL RDW 13.3 (11.5-14.5) % Plt Count 153 (150-400) 10^3/uL MPV 10.1 (7.4-10.4) fL Immature Gran % (Auto) 0.1 (0.0-5.0) % Neut % (Auto) 61.1 (50.0-70.0) % Lymph % (Auto) 27.5 (20.0-40.0) % [place] % (Auto) 9.2 H (2.0-8.0) % Eos % (Auto) 1.6 (1.0-3.0) % Baso % (Auto) 0.5 (0.0-1.0) % Neut # (Auto) 5.38 (2.50-7.00) 10^3/uL Lymph # (Auto) 2.42 (1.00-4.00) 10^3/uL [place] # (Auto) 0.81 H (0.10-0.80) 10^3/uL Eos # (Auto) 0.14 (0.10-0.30) 10^3/uL Baso # (Auto) 0.04 (0.00-0.10) 10^3/uL Immature Gran # (Auto) 0.01 (0.00-0.50) 10^3/uL Sodium (136-145) mmol/L Potassium (3.5-5.1) mmol/L Chloride (98-107) mmol/L Carbon Dioxide (21.0-32.0) mmol/L Anion Gap (5-15) mmol/L BUN (7-18) mg/dL Creatinine (0.51-1.17) mg/dL Est Cr Clr Drug Dosing mL/min Estimated GFR (MDRD) mL/min Glucose (70-140) mg/dL POC Glucose 106 (70-140) mg/dL Calcium (8.7-10.3) mg/dL Total Bilirubin (0.2-1.0) mg/dL AST (15-37) U/L ALT (14-63) U/L Alkaline Phosphatase (46-116) U/L Creatine Kinase (26-276) U/L Troponin I < 0.017 (0.000-0.056) ng/mL B-Natriuretic Peptide (0-100) pg/mL Total Protein (6.4-8.2) g/dL Albumin (3.40-5.00) g/dL 02/26/21 02/26/21 Range/Units 15:45 15:51 WBC (5.00-10.00) 10^3/uL RBC (3.80-5.50) 10^6/uL Hgb (12.0-16.0) g/dL Hct (37.0-47.0) % MCV (82.0-92.0) fL MCH (27.0-31.0) pg MCHC (32.0-36.0) g/dL RDW (11.5-14.5) % Plt Count (150-400) 10^3/uL MPV (7.4-10.4) fL Immature Gran % (Auto) (0.0-5.0) % Neut % (Auto) (50.0-70.0) % Lymph % (Auto) (20.0-40.0) % [place] % (Auto) (2.0-8.0) % Eos % (Auto) (1.0-3.0) % Baso % (Auto) (0.0-1.0) % Neut # (Auto) (2.50-7.00) 10^3/uL Lymph # (Auto) (1.00-4.00) 10^3/uL [place] # (Auto) (0.10-0.80) 10^3/uL Eos # (Auto) (0.10-0.30) 10^3/uL Baso # (Auto) (0.00-0.10) 10^3/uL Immature Gran # (Auto) (0.00-0.50) 10^3/uL Sodium 140 (136-145) mmol/L Potassium 4.4 (3.5-5.1) mmol/L Chloride 102 (98-107) mmol/L Carbon Dioxide 29.4 (21.0-32.0) mmol/L Anion Gap 13.0 (5-15) mmol/L BUN 29 H (7-18) mg/dL Creatinine 0.88 (0.51-1.17) mg/dL Est Cr Clr Drug Dosing 44.35 mL/min Estimated GFR (MDRD) > 60 mL/min Glucose 107 (70-140) mg/dL POC Glucose (70-140) mg/dL Calcium 9.0 (8.7-10.3) mg/dL Total Bilirubin 0.5 (0.2-1.0) mg/dL AST 20 (15-37) U/L ALT 26 (14-63) U/L Alkaline Phosphatase 54 (46-116) U/L Creatine Kinase 33 (26-276) U/L Troponin I (0.000-0.056) ng/mL B-Natriuretic Peptide 62 (0-100) pg/mL Total Protein 6.8 (6.4-8.2) g/dL Albumin 3.36 L (3.40-5.00) g/dL Meds: Medications Discontinued Medications Generic Name Dose Route Start Last Admin Trade Name Freq PRN Reason Stop Dose Admin Sodium Chloride 10 ml 02/26/21 15:40 Sodium Chloride 0.9% 10 Ml Syringe FLUSH Q8HR PRN keep vein open - Re-Assessments/Exams Free Text/Narrative Re-Assessment/Exam: 02/26/21 16:40 Labs and EKG normal. Symptoms have resolved. She has no new neurological deficit. After complete neurological exam she has pre-existing left peripheral vision loss with left upper and lower extremity weakness however I am unable to tell a difference in her right and her left both strong appropriate patient ambulated from bed to wheelchair with pivot transfer which is her normal gait transfer, she does not walk. Patient alert orientated very appropriate requesting to go home. Patient did have some indigestion resolved and is on 11:00 troponin negative EKG normal. She has no further chest pain or indigestion. She noted having some left finger tingling in her middle finger which radiated arm with arm stiffness. CK was checked she is on statins no signs of rhabdo. Chest x-ray normal, return precaution discussed with patient and daughter, I called the daughter and gave her an update. Nursing report was given per nursing staff. 02/26/21 17:06 Departure - Departure Time of Disposition: 17:01 Disposition: DC/Tfer to SNF 03 Reason for Transfer *Q: Other Condition: Good Clinical Impression: Arm numbness left, TIA (transient ischemic attack) Instructions: Transient Ischemic Attack, [id number] Referrals: Alejo Lakhani MD [Primary Care Provider] - Forms: ED Department Discharge Additional Instructions: f/u with PCP next week in the clinic return to ER for any new or worsening conditions or symptoms. Sepsis Event Note (ED) - Focused Exam Vital Signs: Vital Signs Temp Pulse Resp BP Pulse Ox 02/26/21 16:30 58 L 21 H 138/62 94 L 02/26/21 16:15 60 23 H 128/57 L 94 L 02/26/21 15:59 58 L 137/63 94 L 02/26/21 15:43 96.5 F L 95 18 150/68 H 97 - My Orders Last 24 Hours: My Active Orders 02/26/21 15:40 Saline Lock Insert [OM.PC] Routine EKG 12 Lead [EK] Stat - Assessment/Plan Last 24 Hours: My Active Orders 02/26/21 15:40 Saline Lock Insert [OM.PC] Routine EKG 12 Lead [EK] Stat
[2021-02-26 16:19] LABS: CHLORIDE,CL 102 mmol/L (98-107); SODIUM,NA 140 mmol/L (136-145)
--- NOTE | 2021-02-26 16:27 | CR ---
[id number] RAD/RAD Chest PA or AP 1V EXAM: SINGLE VIEW CHEST. INDICATION: CHEST PAIN COMPARISON: CORRELATION IS MADE WITH JUNE 08, 2017 FINDINGS: The lungs are clear The cardiac silhouette is stable Median sternotomy sutures are seen IMPRESSION: NO PNEUMONIA OR EDEMA Devin Hayward MD 02/26/21 [id number] Thank you for allowing us to participate in the care of your patient.
[2021-02-26 16:52] VITALS: BP 138/62; PULSE 58
== END 2021-02-26 17:15 ==
LOC: KA.ED 15:30
DX: G45.9 Transient cerebral ischemic attack, unspecified (principal); E78.00 Pure hypercholesterolemia, unspecified; I10 Essential (primary) hypertension; K21.9 Gastro-esophageal reflux disease without esophagitis; Z79.82 Long term (current) use of aspirin; Z86.73 Personal history of transient ischemic attack (TIA), and cerebral infarction without residual deficits; Z79.899 Other long term (current) drug therapy
CPT/HCPCS: 36415; 71045; 80053; 82550; 82947; 83880; 84484; 85025; 93005; 99284-25

== ENCOUNTER 2023-04-07 08:34 | Emergency (ER) | payer MEDICARE, OTHER, MEDICAID ==
[2023-04-07 08:57] VITALS: BP 202/71; PULSE 53
== END 2023-04-07 10:10 ==
LOC: KA.ED 08:34
DX: S51.011A Laceration without foreign body of right elbow, initial encounter (principal); S00.93XA Contusion of unspecified part of head, initial encounter; I11.0 Hypertensive heart disease with heart failure; I50.9 Heart failure, unspecified; E11.9 Type 2 diabetes mellitus without complications; Z89.512 Acquired absence of left leg below knee; Z79.82 Long term (current) use of aspirin; Z79.899 Other long term (current) drug therapy; W18.30XA Fall on same level, unspecified, initial encounter; Y92.129 Unspecified place in nursing home as the place of occurrence of the external cause
CPT/HCPCS: 70450; 99284

== ENCOUNTER 2023-05-04 00:22 | Emergency (ER) | payer MEDICARE, OTHER, MEDICAID ==
[2023-05-04 02:42] VITALS: BP 154/56; PULSE 57
== END 2023-05-04 02:52 ==
LOC: KA.ED 00:22
DX: S00.11XA Contusion of right eyelid and periocular area, initial encounter (principal); R10.2 Pelvic and perineal pain; M54.2 Cervicalgia; R51.9 Headache, unspecified; M25.521 Pain in right elbow; I11.0 Hypertensive heart disease with heart failure; I50.9 Heart failure, unspecified; E78.00 Pure hypercholesterolemia, unspecified; K21.9 Gastro-esophageal reflux disease without esophagitis; E11.9 Type 2 diabetes mellitus without complications; Z79.899 Other long term (current) drug therapy; Z79.82 Long term (current) use of aspirin; W06.XXXA Fall from bed, initial encounter
CPT/HCPCS: 70450; 72125; 72170; 73070-RT; 99284; 99285